=== PATIENT | female | born 1935 | race Caucasian/White ===

== ENCOUNTER 2018-11-03 17:34 | Inpatient (IN) | payer MEDICARE, BC ==
[~2018-11-03] VITALS: Ht 170.2 cm; Wt 58.7 kg
[~2018-11-03 17:34] MED LIST: ACCUPRIL10 MG; ACTONEL5 MG PO; ALENDRONATE70 MG PO; ALLEGRA180 MG PO; ASPIRIN325 MG PO; ATENOLOL25 MG PO; AZITHROMYCIN250 MG PO; BAYER ASPIRIN325 M1 PO; CAL-CITRATE150 MG PO; CALCI PO; CEPHALEXIN500 MG PO; CHOLESTYRAMINE4 G1 PO; CIPROFLOXACN500 MG PO; CLINDAMYCIN150 MG PO; COMPLEX PO; D32000 UNIT OR; EVISTA60 MG PO; FEXOFENADINE180 MG PO; FISH OIL PO; FISH OIL300 MG OR; MECLIZINE25 MG PO; MEDDOSEPAK PO; MELOXICAM7.5 MG PO; NABUMETONE500 MG PO; SANTYL250 MG/GM EX; SYNTHROID75 MCG PO; TYLENOL325 MG PO; VISION PLUS PO; VITAMIN D31000 UNI1 PO; ZITHROMAX500 MG PO; voltaren gel 1% TOP
--- NOTE | 2018-11-03 17:43 | NUR ---
PT AMBULATED TO ROOM WITH STEADY GAIT
[2018-11-03] MEDS ORDERED: AMLODIPINE2.5 MG PO (17:47)
[2018-11-03 17:57] LABS: HEMATOCRIT 39.5 % (37.0-47.0); HEMOGLOBIN 13.3 g/dl (12.0-16.0); IMMATURE GRANULOCYTES 0.2 % (0.0-5.0); MEAN CELL VOLUME 95.6 fL CALC (80.0-100.0); MEAN CORPUSCULAR HGB 32.2 pG CALC (26.0-32.0); MEAN CORPUSCULAR HGB CONC 33.7 g/L CALC (32.0-36.0); NEUT# 2.23 thou/uL (2.00-7.15); RED BLOOD COUNT 4.13 mill/uL (4.20-5.60)
--- NOTE | 2018-11-03 18:27 | NUR ---
PT PROVIDED BENTYL PO PER CONTINUES SPASMS ACROSS ABDOMEN. EARLIER ZOFRAN AND TORADOL HELPED MINIMALLY.
[2018-11-03 18:31] LABS: ALBUMIN 4.4 g/dL (3.2-5.0); ALKALINE PHOSPHATASE 77 u/l (38-126); ANION GAP 16 (6-22 (CALC)); BUN 20 mg/dL (8-23); BUN/CREATININE RATIO 26 (12-20 (CALC)); CARBON DIOXIDE 29 mmol/l (22-30); CHLORIDE 99 mmol/l (95-108); CREATININE 0.8 mg/dL (0.5-1.0); GFR > 60 ML/MIN (>=60 (CALC)); GFR FOR AFR.AMER. > 60 ML/MIN (>=60 (CALC)); LIPASE 193 u/l (23-300); POTASSIUM 4.9 mmol/l (3.5-5.1); SGOT/AST 53 u/l (9-36); SODIUM 140 mmol/l (137-146); TOTAL PROTEIN 7.9 g/dL (6.3-8.2)
[2018-11-03 18:50] LABS: URINE BILIRUBIN - DIPSTICK NEGATIVE (NEGATIVE); URINE BLOOD DIPSTICK NEGATIVE (NEGATIVE); URINE COLOR YELLOW; URINE GLUCOSE - DIPSTICK NEGATIVE (NEGATIVE); URINE KETONE NEGATIVE (NEGATIVE); URINE LEUK ESTERASE NEGATIVE (NEGATIVE); URINE NITRITE - DIPSTICK NEGATIVE (Negative); URINE PROTEIN - DIPSTICK NEGATIVE (NEG-TRACE); URINE SPECIFIC GRAVITY 1.015; URINE UROBILINOGEN - DIPSTICK 0.2 E.U./dL (0.2)
--- NOTE | 2018-11-03 19:00 | NUR ---
PT TO CT AND BACK, AWAITS RESULTS. PT AMBULATORY TO BR WITH STEADY GAIT.
[2018-11-03 21:30] VITALS: BP 167/75
--- NOTE | 2018-11-03 21:30 | NUR ---
PT ARRIVED TO THE FLOOR VIA STRETCHER ACCOMPANIED BY ED NURSE. NG TUBE IN PLACE TO RIGHT NARE/CONNECTED TO LOW INTERMITTANT SUCTION. PT POSITIONED IN BED, V/S OBTAINED AND PT ORIENTED TO ROOM,CALL SYSTEM,LIGHTS,BED AND TV. PT DENIES ANY PAIN/N/V AT THIS TIME.
--- NOTE | 2018-11-03 21:38 | NUR ---
PT MADE AWARE OF PENDING ADMISSION PER POSSIBLE BOWEL OBSTRUCTION. REPORT WAS CALLED TO SANDRA NAVARRO, PT TAKEN TO FLOOR WITHOUT INCIDENT. NG WAS PLACED BY CHARGE NURSE MORE, DRAINS TANNISH LIQUID, 200 OUT WHEN TRANSPORTED UPSTAIRS. BILATERAL NOSE BLEEDS WERE INFLICTED WITH ATTEMPTS, NOSE CLAMPS PLACED.
[2018-11-04] VITALS (8 sets, daily range): BP systolic 117–167; BP diastolic 61–87
--- NOTE | 2018-11-04 00:02 | NUR ---
PT ASSESSED, LUNG SOUNDS ARE CLEAR, HYPO BOWEL SOUNDS W/TENDERNESS TO UPPER RIGHT SIDE ONLY. PT LOCX4, DENIES PAIN/N/V AT THIS TIME. SKIN IS INTACT W/BRUISING AND REDNESS TO LOWER EXT BILAT W/OLD SKIN TEARS SCABBED OVER. PULSES ARE STRONG, NEURO'S INTACT. POC DISCUSSED AT THIS TIME AND PT MEDICATED ORDERS PROVIDE. NGTUBE IS PATENT W/YELLOW OUTPUT W/LOW INTERMITTANT SUCTION. IV FLUIDS ADMINISTERED ORDERS PROVIDE/SITE APPEARS HEALTHY. PT PROVIDED LIP BALM AND MOUTH SWABS FOR COMFORT. PT IS NPO AND THIS HAS BEEN EXPLAINED TO PT.
--- NOTE | 2018-11-04 02:55 | NUR ---
PT AWOKE TO MY ENTERING ROOM, STATES SHE HAS BEEN IN AND OUT OF SLEEP. NG TUBE IS DRAINING W/LOW INTERMITTENT SUCTION, YELLOW/BROWN OUTPUT. 1000CC OF CLOUDY YELLOW URINE EMPTIED FROM BEDSIDE COMMODE. PT ASSISTED IN REPOSITIONING IN BED FOR COMFORT. PT DENIES ANY OTHER NEEDS, BUT WAS ENCOURAGED TO CALL, CALL LIGHT AT SIDE.
[2018-11-04 05:58] LABS: HEMATOCRIT 38.3 % (37.0-47.0); HEMOGLOBIN 12.7 g/dl (12.0-16.0); IMMATURE GRANULOCYTES 0.2 % (0.0-5.0); MEAN CELL VOLUME 94.8 fL CALC (80.0-100.0); MEAN CORPUSCULAR HGB 31.4 pG CALC (26.0-32.0); MEAN CORPUSCULAR HGB CONC 33.2 g/L CALC (32.0-36.0); NEUT# 4.12 thou/uL (2.00-7.15); RED BLOOD COUNT 4.04 mill/uL (4.20-5.60); RED CELL DISTRI WIDTH 13.2 % (11.5-15.5)
[2018-11-04 06:09] LABS: ALBUMIN 3.6 g/dL (3.2-5.0); ALKALINE PHOSPHATASE 72 u/l (38-126); AMYLASE 93 u/l (30-110); BILIRUBIN, TOTAL 0.4 mg/dL (0.0-1.4); BUN 15 mg/dL (8-23); BUN/CREATININE RATIO 20 (12-20 (CALC)); CARBON DIOXIDE 31 mmol/l (22-30); CHLORIDE 100 mmol/l (95-108); CREATININE 0.7 mg/dL (0.5-1.0); GFR > 60 ML/MIN (>=60 (CALC)); GFR FOR AFR.AMER. > 60 ML/MIN (>=60 (CALC)); LIPASE 181 u/l (23-300); MAGNESIUM 1.9 mg/dL (1.6-2.3); SGOT/AST 31 u/l (9-36); SODIUM 140 mmol/l (137-146); TOTAL PROTEIN 6.5 g/dL (6.3-8.2)
[2018-11-04 06:22] LABS: ANION GAP 13 (6-22 (CALC)); POTASSIUM 3.8 mmol/l (3.5-5.1)
--- NOTE | 2018-11-04 07:00 | NUR ---
Received report from nurse Michael, pt resting in bed, ngt on rt nare, connected to suction machine, with coffee ground drainage, with even unlabored braething call light at reach
--- NOTE | 2018-11-04 08:23 | NUR ---
Received a phone order from Dr. Flores Small bowel series with gastrograftin oral. Orders put in place. Procedure explained to patient. Also pt c/o headache 03/31 report to Marie MARINELLI ordered toradol 15mg iv now. Awaiting for pharmacy verification.
--- NOTE | 2018-11-04 11:53 | NUR ---
Pt brought up with the clinical support team, Nurse Vamsi stated that during the 1 hour photo of the bowel series pt started to experienced nausea and vomitted yellowish brown fluid, dizziness, and fainted at the xray room. Pt back to room, pt stiil vomitting yellow brownish fluid, ngt was checked for patency and placement. Seen by Dr. Aguayo and ISIS Salazar, ordered Zofran, and CXR.
--- NOTE | 2018-11-04 12:31 | NUR ---
Order to place ramírez, inserted ramírez catheter at 1215 fr 16, attached to urine bag. Zofran iv given, New set of V/S taken as follows: Bp 140/67 T 97.8 P50 POX 93% at RA, R 20.
--- NOTE | 2018-11-04 12:52 | NUR ---
at 1240 CXR and abdominal xray of the bowel series taken Dr. Aguayo made aware, awaiting for further orders
--- NOTE | 2018-11-04 15:16 | NUR ---
DR. SALDAÑA AT BEDSIDE TO ASSESS PT AND POC WITH PT. PT VERBALIZED UNDERSTANDING. CALL LIGHT IN REACH.
--- NOTE | 2018-11-04 16:51 | NUR ---
ABDOMEN KUB IV done, pending result, patient curently resting in bed, sleeping, no discomforts noted at this time
--- NOTE | 2018-11-04 19:00 | NUR ---
RECEIVED REPORT FROM DAY NURSE. PT ASLEEP AT THIS TIME. NGT TUBE DRAINING ON CONTINUOUS SUCTION. WIGGINS DRAINING TO GRAVITY CLEAR YELLOW URINE. NO NEEDS AT THIS TIME. CALL REY IN REACH. WILL CONTINUE TO MONITOR.
--- NOTE | 2018-11-04 20:00 | NUR ---
DR LOCKETT NOTIFIED OF TEMP OF 101.2. NEW ORDERS RECEIVED.
--- NOTE | 2018-11-04 21:00 | NUR ---
PT RESTING QUIETLY IN BED. NGT DRAINING YELLOW. WIGGINS CATH IN PLACE DRAINING CLEAR YELLOW URINE. MEDICATED PER ORDER FOR TEMP. ASESSMENT COMPLETED AT THIS TIME. LUNG SOUNDS CLEAR, HEART SOUNDS NORMAL, BOWEL SOUND ACTIVE. BRUSING TO SHINS, NO SWELLING OR EDEMA NOTED. NO NEEDS AT THIS TIME. CALL REY IN REACH. WILL CONTINUE TO MONITOR.
--- NOTE | 2018-11-05 | NUR ---
PT RESTING QUIETLY IN BED. NO S/S OF DISTRESS NOTED. NGT DRAINING ON LOW SUCTION. WIGGINS DRAINING TO GRAVITY. NO NEEDS AT THIS TIME.
[2018-11-05 04:33] VITALS: BP 126/69
[2018-11-05 04:34] VITALS: BP 146/86
[2018-11-05 05:17] LABS: HEMATOCRIT 40.7 % (37.0-47.0); HEMOGLOBIN 13.6 g/dl (12.0-16.0); IMMATURE GRANULOCYTES 0.2 % (0.0-5.0); MEAN CELL VOLUME 95.5 fL CALC (80.0-100.0); MEAN CORPUSCULAR HGB 31.9 pG CALC (26.0-32.0); MEAN CORPUSCULAR HGB CONC 33.4 g/L CALC (32.0-36.0); PLATELET COUNT 222 thou/uL (130-400); RED BLOOD COUNT 4.26 mill/uL (4.20-5.60); RED CELL DISTRI WIDTH 13.4 % (11.5-15.5)
[2018-11-05 05:29] LABS: ALBUMIN 3.5 g/dL (3.2-5.0); ALKALINE PHOSPHATASE 66 u/l (38-126); AMYLASE 74 u/l (30-110); ANION GAP 12 (6-22 (CALC)); BILIRUBIN, TOTAL 0.5 mg/dL (0.0-1.4); BUN 23 mg/dL (8-23); BUN/CREATININE RATIO 27 (12-20 (CALC)); CARBON DIOXIDE 33 mmol/l (22-30); CHLORIDE 101 mmol/l (95-108); CREATININE 0.9 mg/dL (0.5-1.0); GFR 60 ML/MIN (>=60 (CALC)); GFR FOR AFR.AMER. > 60 ML/MIN (>=60 (CALC)); LIPASE 105 u/l (23-300); MAGNESIUM 1.8 mg/dL (1.6-2.3); POTASSIUM 3.6 mmol/l (3.5-5.1); SGOT/AST 29 u/l (9-36); SODIUM 142 mmol/l (137-146); TOTAL PROTEIN 6.3 g/dL (6.3-8.2)
[2018-11-05 06:05] LABS: BAND 30 % (0-8); MANUAL DIFFERENTIAL YES; PLATELET ESTIMATE NORMAL
--- NOTE | 2018-11-05 06:30 | NUR ---
PT ASLEEP AT THIS TIME. LABOR RELATIONS REPRESENTATIVE NOTICED PT HAD A LARGE BM DOWN TO FEET. PT WAKES TO VERBAL STIMUILI PT IS A & O x3 BUT UNAWARE OF BM. INSURANCE SALES EXECUTIVE CATESHIA IN TO CLEAN PT.
--- NOTE | 2018-11-05 07:00 | NUR ---
rECEIVED REPORT FROM NURSE LOYOLA, PATIENT RESTING IN BED, NGT ON RT NARE, DENIES DIZZINESS AND NAUSEA, WILL CONTINUE TO MONITOR. CALL LIGHT AT REACH
[2018-11-05 07:30] VITALS: BP 124/69
--- NOTE | 2018-11-05 08:00 | NUR ---
Patient remains on NPO denies pain or discomfort, ngt checked for patency and placement draining greenish to brownish fluids, suction maintened on intermittent low, has ramírez catheter draining laura colored urine. call light at reach will continue to monitor.
--- NOTE | 2018-11-05 09:10 | NUR ---
portable kub abdomen done awiting result.
--- NOTE | 2018-11-05 11:50 | NUR ---
Seen on rounds by Dr. Aguayo, reviewed the plan of care to patient, currently resting in bed, denies pain call light at reach
[2018-11-05 11:53] VITALS: BP 144/62
[2018-11-05 15:44] VITALS: BP 144/68
--- NOTE | 2018-11-05 16:34 | NUR ---
Patient has a slight elevated temp of 100F, remains on NPO, NGT checked for placement and patency, prn acetaminophen suppository given with effect repeat temp 99.2 F. Call light within reach
--- NOTE | 2018-11-05 17:09 | NUR ---
Patient seen on rounds by Dr. Flores with orders made to d/c ramírez catheter, clamp ngt tubing and start on clear liquids
--- NOTE | 2018-11-05 17:42 | NUR ---
Britt catheter discontinued, ngt clamped, patient given ice chips, tolerated at this time, will continue to monitor call light at reach
--- NOTE | 2018-11-05 19:00 | NUR ---
PT RESTING IN BED WITH EYES CLOSED. NO S/S OF DISTRESS. NGT IN RIGHT ZAPIEN, CLAMPED AT THIS TIME.CALL REY IN REACH. WILL CONTINUE TO MONITOR.
[2018-11-05 19:34] VITALS: BP 136/59
--- NOTE | 2018-11-05 21:42 | NUR ---
PT RESTING IN BED APPEARS ASLEEP AT THIS TIME. ASSESMENT COMPLETED AT THIS TIME. LUNGS CLEAR, HR NORMAL, BOWEL SOUNDS ACTIVE. NO SWELLING OR EDEMA. BRUSING TO BOH SHINS NOTED. NGT IN RIGHT ZAPIEN, CLAMPED AT THIS TIME. PT HAVING NO NAUSEA OR VOMITING. CALL REY IN REACH. WILL CONTINUEW TO MONITOR.
--- NOTE | 2018-11-06 | NUR ---
PT RESTING QUIETLY IN BED. NO S/S OF DISTRESS AT THIS TIME. CALL REY IN REACH. WILL CONTINUE TO MONITOR.
--- NOTE | 2018-11-06 04:00 | NUR ---
PT RESTING QUIETLY IN BED. NGT CLAMPED. PT SLEEPING WELL. CALL REY IN REACH. WILL CONTINUE TO MONITOR.
[2018-11-06 04:29] VITALS: BP 157/73
--- NOTE | 2018-11-06 07:00 | NUR ---
RECEIVED REPORT FROM NURSE LOYOLA, PATIENT IN BED, DENIES PAIN OR NAUSEA, EVEN UNLABORED BREATHING CALL LIGHT AT REACH
[2018-11-06 07:30] VITALS: BP 151/82
--- NOTE | 2018-11-06 08:00 | NUR ---
PATIENT IN RESTING IN BED, NGT IN RT NARE CLAMPED, CHECKED FOR PLACEMENT AND PATENCY. DENIES PAIN AT THIS TIME, CALL LIGHT AT REACH
--- NOTE | 2018-11-06 09:35 | NUR ---
SEEN ON ROUNDS BY DR. LOCKETT, DISCUSSED THE PLAN OF CARE, ORDERED TO REMOVE NGT, ADVANCE DIET TOLERATED. PATIENTS DENIES NEEDS AT THIS TIME CALL LIGHT AT REACH
--- NOTE | 2018-11-06 09:40 | NUR ---
PATIENT SITTING UPRIGHT, REMOVED NGT, TOLERATED. CURRENTLY SITTING ON RECLINER CALL LIGHT AT REACH
--- NOTE | 2018-11-06 12:00 | NUR ---
PATIENT SITTING IN THE RECLINER, STATED RELIEF FROM HEADACHE, CURRENLTY EATING LUNCH ON FULL LIQUID DIET AT THIS TIME TOLERATED,CALL LIGHT AT REACH
[2018-11-06 15:57] VITALS: BP 129/56
--- NOTE | 2018-11-06 16:00 | NUR ---
Pt alert and orieted able to make needs known, sitting on recliner, denies pain or discomforts at this time, currently reading a book call light at reach
[2018-11-06 19:40] VITALS: BP 166/83
--- NOTE | 2018-11-06 19:40 | NUR ---
BEDSIDE REPORT RECEIVED FROM RAMON JACKSON. PT RESTING IN BED SEMI FOWLERS; ALERT AND OREINTED. C/O 8/ HEADACHE; TYLENOL ADMINISTERED AT THIS TIME. RESPIRATIONS EVEN AND UNLABROED ON ROOM AIR. PLAN OF CARE REVIEWED. PT ENCOURAGED TO VERBALIZE CONCERNS. STATES UNDERSTANDING. SAFETY MEASURES IN PLACE. CALL LIGHT WITHIN REACH.
--- NOTE | 2018-11-07 00:06 | NUR ---
PT ASLEEP AT THIS TIME WITH NO SIGNS OF DISTRESS. REPORTED EARLIER THAT TYLENOL WAS EFFECTIVE FOR HEADAHCE. RESPIRATIONS EVEN AND UNLABORED ON ROOM AIR. IV FLUIDS INFUSING WITHOUT DIFFICULTY; IV SITE APPEARS HEALTHY. INDEPENDENT IN ROOM. SAFETY MEASURES IN PLACE. CALL LIGHT WITHIN REACH.
[2018-11-07 03:55] VITALS: BP 169/87
--- NOTE | 2018-11-07 04:22 | NUR ---
PT ASLEEP AT THIS TIME WITH NO SIGNS OF DISTRESS. RESPIRATIONS EVEN AND UNLABORED ON ROOM AIR. NO ACUTE CHANGES IN CONDITION THROUGHOUT THE NIGHT.
[2018-11-07 05:53] LABS: HEMATOCRIT 35.2 % (37.0-47.0); HEMOGLOBIN 11.7 g/dl (12.0-16.0); IMMATURE GRANULOCYTES 0.7 % (0.0-5.0); MEAN CELL VOLUME 97.5 fL CALC (80.0-100.0); MEAN CORPUSCULAR HGB 32.4 pG CALC (26.0-32.0); MEAN CORPUSCULAR HGB CONC 33.2 g/L CALC (32.0-36.0); NEUT# 6.61 thou/uL (2.00-7.15); RED BLOOD COUNT 3.61 mill/uL (4.20-5.60); RED CELL DISTRI WIDTH 13.3 % (11.5-15.5)
[2018-11-07 06:30] LABS: ALBUMIN 2.8 g/dL (3.2-5.0); ALKALINE PHOSPHATASE 70 u/l (38-126); AMYLASE 56 u/l (30-110); BILIRUBIN, TOTAL 0.5 mg/dL (0.0-1.4); BUN 14 mg/dL (8-23); BUN/CREATININE RATIO 25 (12-20 (CALC)); CARBON DIOXIDE 25 mmol/l (22-30); CHLORIDE 109 mmol/l (95-108); CREATININE 0.6 mg/dL (0.5-1.0); GFR > 60 ML/MIN (>=60 (CALC)); GFR FOR AFR.AMER. > 60 ML/MIN (>=60 (CALC)); LIPASE 74 u/l (23-300); MAGNESIUM 1.8 mg/dL (1.6-2.3); SGOT/AST 27 u/l (9-36); SODIUM 138 mmol/l (137-146); TOTAL PROTEIN 5.4 g/dL (6.3-8.2)
[2018-11-07 06:32] LABS: ANION GAP 9 (6-22 (CALC)); POTASSIUM 4.5 mmol/l (3.5-5.1)
--- NOTE | 2018-11-07 07:20 | NUR ---
PT REPORT RECIEVED FROM RAMON HARGROVE. PT SITTING IN RECLINER. NO NEEDS AT THIS TIME. CALL LIGHT IN REACH. WILL CONTINUE TO MONITOR.
[2018-11-07 08:37] VITALS: BP 142/70
--- NOTE | 2018-11-07 08:37 | NUR ---
PT A/O X3. SPEECH IS CLEAR. RESP EVEN AND UNLABORED. LUNG SOUNDS CLEAR. PT HAS A DRY COUGH. BOWEL SOUNDS ACTIVE X4. STRONG RADIAL PULSES. #20 LW D5 NS W/ 40 K @75. SITE HEALTHY. RT PEDAL PULSE STRONG. WEAK LT PEDAL PULSE; TRACE OF EDEMA NOTED TO RT FOOT. ENCOURAGED ELEAVTION WHEN OOB. PT DENIES ANY PAIN OR NEEDS. POC DISCUSSED. SAFETY PRECAUTIONS IN PLACE. CALL LIGHT IN REACH. WILL CONTINUE TO MONITOR.
--- NOTE | 2018-11-07 12:09 | NUR ---
PT SITTING IN RECLINER EATING LUNCH. NO C/O PAIN OR NEEDS. CALL LIGHT IN REACH. WILL CONTINUE TO MONITOR.
[2018-11-07 15:50] VITALS: BP 139/64
--- NOTE | 2018-11-07 16:00 | NUR ---
PT WATCHING TELEVISION. NO C/O PAIN OR NEEDS. CALL LIGHT IN REACH. WILL CONTINUE TO MONITOR.
[2018-11-07 19:20] VITALS: BP 150/76
--- NOTE | 2018-11-07 19:47 | NUR ---
PT ASSESSED, LUNG SOUNDS ARE CLEAR THROUGHOUT W/CRACKLES IN RIGHT LOWER LOBE, ABD SOFT NON-TENDER W/ACTIVE BOWEL SOUNDS, PT LOCX4, NO S/O DITRESS, SKIN BRUISED,BUT INTACT. NEURO'S INTACT. PT SELF AMBULATES TO RESTROOM AND BACK/DENIES ANY SOB UPON AMBULATION.
--- NOTE | 2018-11-07 22:26 | NUR ---
PT ANTIBIOTIC THERAPY COMPLETED AT THIS TIME. PT ASSISTED TO RESTROOM AND BACK TO BED. NO S/O DISTRESS NOTED. CALL LIGHT AT BEDSIDE.
--- NOTE | 2018-11-08 05:50 | NUR ---
PT MEDICATED W/IV ANTIBIOTIC THERAPY AT THIS TIME. NO S/O DISTRESS NOTED, DENIES ANY OTHER NEEDS.
[2018-11-08 05:58] LABS: HEMATOCRIT 32.9 % (37.0-47.0); HEMOGLOBIN 11.2 g/dl (12.0-16.0); IMMATURE GRANULOCYTES 0.6 % (0.0-5.0); MEAN CELL VOLUME 95.1 fL CALC (80.0-100.0); MEAN CORPUSCULAR HGB 32.4 pG CALC (26.0-32.0); NEUT# 4.59 thou/uL (2.00-7.15); RED BLOOD COUNT 3.46 mill/uL (4.20-5.60); RED CELL DISTRI WIDTH 12.9 % (11.5-15.5)
[2018-11-08 06:05] LABS: ALBUMIN 2.8 g/dL (3.2-5.0); ALKALINE PHOSPHATASE 72 u/l (38-126); ANION GAP 11 (6-22 (CALC)); BILIRUBIN, TOTAL 0.6 mg/dL (0.0-1.4); BUN 11 mg/dL (8-23); BUN/CREATININE RATIO 21 (12-20 (CALC)); CARBON DIOXIDE 23 mmol/l (22-30); CHLORIDE 104 mmol/l (95-108); CREATININE 0.5 mg/dL (0.5-1.0); GFR > 60 ML/MIN (>=60 (CALC)); GFR FOR AFR.AMER. > 60 ML/MIN (>=60 (CALC)); MAGNESIUM 1.7 mg/dL (1.6-2.3); POTASSIUM 4.2 mmol/l (3.5-5.1); SGOT/AST 32 u/l (9-36); SODIUM 134 mmol/l (137-146); TOTAL PROTEIN 5.3 g/dL (6.3-8.2)
[2018-11-08 08:22] VITALS: BP 96/58
--- NOTE | 2018-11-08 08:27 | NUR ---
PT SITTING UP IN RECLINER WATCHING TV AND EATING BREAKFAST; A/O X4; SPEECH'S CLEAR; RESP EVEN AND UNLABORED; CRACKLES NOTED TO RLL; PULSES STRONG; #20 LW S/L; NO REDNESS OR EDEMA NOTED; HYPOACTIVE BS ALL QUADRANTS; LAST BM 11/08; TRACE EDEMA NOTED TO BLE; REPORT NO PAIN; PT HAS NO QUESTIONS OR CONCERNS; SAFETY PRECAUTION REINFORCE; CALL REY IN REACH.
[2018-11-08 15:35] VITALS: BP 151/77
--- NOTE | 2018-11-08 16:26 | NUR ---
PT LAYING IN BED AWAKE; DENIES ANY NEEDS; NEW IV SITE STARTED AT NOON #20 LA; REMAINS FREE OF EDEMA; RESP EVEN AND UNLABRORED; CALL REY IN REACH; WILL CONTINUE TO MONITOR.
--- NOTE | 2018-11-08 19:22 | NUR ---
PT IS IN RECLINER W/LIGHTS LOW AND TV ON. SHE DENIED ANY NEEDS AT THIS TIME. IV SITE APPEARS HEALTHY, POC DISCUSSED, BEDSIDE REPORT RECEIVED FROM DAY NURSE. CALL LIGHT IN PT HAND.
[2018-11-08 19:25] VITALS: BP 111/59
--- NOTE | 2018-11-08 21:48 | NUR ---
PT MEDICATED W/ANTIBIOTIC THERAPY AND ASSESSED, LUNG SOUNDS CLEAR THROUGOUT W/CRACKLES TO LOWER RIGHT LOBE, ABD SOFT NON-TENDER, TRACE EDEMA TO LLE, SKIN INTACT W/BRUISING AND DISCOLORATION TO LE BILAT, PT LOCX4, PT DENIES PAIN/N/V AT THIS TIME. PT OFFERED SNACK/DRINK/DENIED.
--- NOTE | 2018-11-09 04:45 | NUR ---
PT UP COMING FROM RESTROOM BACK TO THE BED. NO S/O DISTRESS NOTED. CALL LIGHT AT BEDSIDE, V/S BEING ASSESSED AT THIS TIME. PT DENIES ANY NEEDS
[2018-11-09 04:50] VITALS: BP 142/74
--- NOTE | 2018-11-09 05:43 | NUR ---
PT MEDICATED ORDERS PROVIDE. PT AWAKE AND TALKATIVE, REPORTS "FEELING FINE."
[2018-11-09 07:03] LABS: HEMATOCRIT 34.1 % (37.0-47.0); HEMOGLOBIN 11.4 g/dl (12.0-16.0); IMMATURE GRANULOCYTES 0.7 % (0.0-5.0); MEAN CORPUSCULAR HGB 31.8 pG CALC (26.0-32.0); MEAN CORPUSCULAR HGB CONC 33.4 g/L CALC (32.0-36.0); NEUT# 6.72 thou/uL (2.00-7.15); RED BLOOD COUNT 3.59 mill/uL (4.20-5.60); RED CELL DISTRI WIDTH 12.7 % (11.5-15.5)
--- NOTE | 2018-11-09 07:15 | NUR ---
PT REPORT RECIEVED FROM RAMON FLORES. PT RESTING IN BED. NO S/S OF DISTESS. CALL LIGHT IN REACH. WILL CONTINUE TO MONITOR.
[2018-11-09 07:20] LABS: ALBUMIN 2.8 g/dL (3.2-5.0); ALKALINE PHOSPHATASE 74 u/l (38-126); ANION GAP 11 (6-22 (CALC)); BILIRUBIN, TOTAL 0.6 mg/dL (0.0-1.4); BUN 11 mg/dL (8-23); BUN/CREATININE RATIO 19 (12-20 (CALC)); CARBON DIOXIDE 26 mmol/l (22-30); CHLORIDE 102 mmol/l (95-108); CREATININE 0.6 mg/dL (0.5-1.0); GFR > 60 ML/MIN (>=60 (CALC)); GFR FOR AFR.AMER. > 60 ML/MIN (>=60 (CALC)); MAGNESIUM 1.8 mg/dL (1.6-2.3); POTASSIUM 3.9 mmol/l (3.5-5.1); SGOT/AST 26 u/l (9-36); SODIUM 135 mmol/l (137-146); TOTAL PROTEIN 5.3 g/dL (6.3-8.2)
[2018-11-09 08:19] VITALS: BP 109/59
--- NOTE | 2018-11-09 08:19 | NUR ---
PT A/O X3. SPEECH IS CLEAR. RESP EVEN AND UNLABORED. ALL LUNG GARY CLEAR EXCEPT RLL CRACKLES. BOWEL SOUNDS ACTIVE X4. STRONG RADIAL AND PEDAL PULSES. #20 LFA SL. FLUSHED AND PATENT. SITE HEALTHY. SKIN INTACT. PT DOES HAVE SOME DISCOLORATION TO BLE. NO C/O PAIN OR NEEDS. POC DISCUSSED. SAFETY PRECAUTIONS IN PLACE. CALL LIGHT IN REACH. WILL CONTINUE TO MONITOR.
--- NOTE | 2018-11-09 11:09 | NUR ---
PT SITTING IN RECLINER. NO C/O PAIN OR NEEDS. CALL LIGHT IN REACH. WILL CONTINUE TO MONITOR.
[2018-11-09] MEDS ORDERED: LEVAQUIN750 MG PO (12:28)
[2018-11-09 15:42] VITALS: BP 122/70
--- NOTE | 2018-11-09 15:48 | NUR ---
D/C INSTRUCTIONS DISCUSSED W/ PT. PT STATES UNDERSTANDING. IV REMOVED, CATHETER INTACT. PT GETTING DRESSED, WAITING FOR HER BROTHER TO PICK HER UP.
--- NOTE | 2018-11-09 16:05 | NUR ---
Discharge instructions given. Patient verbalizes understanding of same. Discharged in stable condition via Wheelchair to Home with family. All belongings sent with pt.
== END 2018-11-09 16:05 | disposition home or self-care (01) | DRG 388 ==
LOC: ED 17:34 → ED-I 19:45 → ED 20:43 → MS2 20:44
PROVIDERS: Family Medicine; ADMIT Internal Medicine Nephrology; ATTEND Internal Medicine Nephrology
PROC: 0T9B70Z Drainage of Bladder with Drainage Device, Via Natural or Artificial Opening (ICD-10-PCS; principal; 2018-11-04)
DX: K56.609 Unspecified intestinal obstruction, unspecified as to partial versus complete obstruction (principal); J69.0 Pneumonitis due to inhalation of food and vomit; I10 Essential (primary) hypertension; E03.9 Hypothyroidism, unspecified; F41.9 Anxiety disorder, unspecified; E55.9 Vitamin D deficiency, unspecified; R63.6 Underweight; Z68.20 Body mass index [BMI] 20.0-20.9, adult
CPT/HCPCS: G0378; Q9967

== ENCOUNTER 2019-09-17 11:46 | Inpatient (IN) | payer MEDICARE, BC ==
[~2019-09-17] VITALS: Ht 170.2 cm; Wt 54.4 kg
[~2019-09-17 11:46] MED LIST changes: +AMLODIPINE2.5 MG PO; +LEVAQUIN750 MG PO
[2019-09-17] MEDS ORDERED: B121000 MCG (12:59)
[2019-09-17 13:11] LABS: HEMATOCRIT 35.2 % (37.0-47.0); HEMOGLOBIN 11.2 g/dl (12.0-16.0); IMMATURE GRANULOCYTES 0.3 % (0.0-5.0); MEAN CELL VOLUME 93.9 fL CALC (80.0-100.0); MEAN CORPUSCULAR HGB 29.9 pG CALC (26.0-32.0); MEAN CORPUSCULAR HGB CONC 31.8 g/L CALC (32.0-36.0); NEUT# 4.04 thou/uL (2.00-7.15); RED BLOOD COUNT 3.75 mill/uL (4.20-5.60); RED CELL DISTRI WIDTH 14.8 % (11.5-15.5)
[2019-09-17 13:15] LABS: ALBUMIN 3.4 g/dL (3.2-5.0); ALKALINE PHOSPHATASE 80 u/l (38-126); ANION GAP 11 (6-22 (CALC)); BILIRUBIN, TOTAL 0.4 mg/dL (0.0-1.4); BUN 16 mg/dL (8-23); BUN/CREATININE RATIO 26 (12-20 (CALC)); CARBON DIOXIDE 26 mmol/l (22-30); CHLORIDE 103 mmol/l (95-108); CREATININE 0.6 mg/dL (0.5-1.0); GFR > 60 ML/MIN (>=60 (CALC)); GFR FOR AFR.AMER. > 60 ML/MIN (>=60 (CALC)); POTASSIUM 4.3 mmol/l (3.5-5.1); SGOT/AST 35 u/l (9-36); SODIUM 135 mmol/l (137-146); TOTAL PROTEIN 6.2 g/dL (6.3-8.2)
[2019-09-17 16:30] VITALS: BP 155/73
[2019-09-17 19:35] VITALS: BP 131/72
[2019-09-18 04:41] VITALS: BP 129/69
[2019-09-18 05:01] LABS: HEMATOCRIT 32.9 % (37.0-47.0); HEMOGLOBIN 10.7 g/dl (12.0-16.0); IMMATURE GRANULOCYTES 0.2 % (0.0-5.0); MEAN CELL VOLUME 92.7 fL CALC (80.0-100.0); MEAN CORPUSCULAR HGB 30.1 pG CALC (26.0-32.0); MEAN CORPUSCULAR HGB CONC 32.5 g/L CALC (32.0-36.0); NEUT# 3.37 thou/uL (2.00-7.15); RED BLOOD COUNT 3.55 mill/uL (4.20-5.60); RED CELL DISTRI WIDTH 14.6 % (11.5-15.5)
[2019-09-18 05:16] LABS: ANION GAP 8 (6-22 (CALC)); BUN 12 mg/dL (8-23); BUN/CREATININE RATIO 23 (12-20 (CALC)); CARBON DIOXIDE 27 mmol/l (22-30); CHLORIDE 104 mmol/l (95-108); CREATININE 0.5 mg/dL (0.5-1.0); GFR > 60 ML/MIN (>=60 (CALC)); GFR FOR AFR.AMER. > 60 ML/MIN (>=60 (CALC)); MAGNESIUM 1.9 mg/dL (1.6-2.3); POTASSIUM 4.2 mmol/l (3.5-5.1); SODIUM 136 mmol/l (137-146)
[2019-09-18 08:15] VITALS: BP 116/76
[2019-09-18 15:00] VITALS: BP 122/60
[2019-09-18 18:33] VITALS: BP 113/70
[2019-09-19 04:30] VITALS: BP 128/72
[2019-09-19 06:04] LABS: HEMATOCRIT 37.8 % (37.0-47.0); HEMOGLOBIN 12.4 g/dl (12.0-16.0); IMMATURE GRANULOCYTES 0.7 % (0.0-5.0); MEAN CELL VOLUME 90.9 fL CALC (80.0-100.0); MEAN CORPUSCULAR HGB 29.8 pG CALC (26.0-32.0); MEAN CORPUSCULAR HGB CONC 32.8 g/L CALC (32.0-36.0); NEUT# 7.46 thou/uL (2.00-7.15); RED BLOOD COUNT 4.16 mill/uL (4.20-5.60); RED CELL DISTRI WIDTH 14.9 % (11.5-15.5)
[2019-09-19 06:13] LABS: ANION GAP 13 (6-22 (CALC)); BUN 15 mg/dL (8-23); BUN/CREATININE RATIO 25 (12-20 (CALC)); CARBON DIOXIDE 24 mmol/l (22-30); CHLORIDE 103 mmol/l (95-108); CREATININE 0.6 mg/dL (0.5-1.0); GFR > 60 ML/MIN (>=60 (CALC)); GFR FOR AFR.AMER. > 60 ML/MIN (>=60 (CALC)); POTASSIUM 4.1 mmol/l (3.5-5.1); SODIUM 135 mmol/l (137-146)
[2019-09-19 07:30] VITALS: BP 126/62
[2019-09-19 15:46] VITALS: BP 152/70
[2019-09-19 18:50] VITALS: BP 114/62
[2019-09-20 03:28] VITALS: BP 129/65
[2019-09-20 08:13] VITALS: BP 124/73
[2019-09-20] MEDS ORDERED: PANTOPRAZOLE SO40 M1 PO (13:09)
[2019-09-20] MEDS ORDERED: TRAMADOL HCL50 MG PO (13:10)
[2019-09-20] MEDS ORDERED: DOXY-CAPS100 MG PO (13:10)
[2019-09-20 15:25] VITALS: BP 147/66
== END 2019-09-20 18:00 | disposition home or self-care (01) | DRG 603 ==
LOC: ED 11:46 → ED-I 13:02 → ED 13:31 → MS2 13:32 → ED-I 13:32 → MS2 15:52
PROVIDERS: Nurse Practitioner Family; ADMIT Internal Medicine; ATTEND Internal Medicine
DX: L03.116 Cellulitis of left lower limb (principal); E46 Unspecified protein-calorie malnutrition; Z68.1 Body mass index [BMI] 19.9 or less, adult; I10 Essential (primary) hypertension; E03.9 Hypothyroidism, unspecified; D64.9 Anemia, unspecified; F41.9 Anxiety disorder, unspecified; I99.9 Unspecified disorder of circulatory system; Z87.891 Personal history of nicotine dependence
CPT/HCPCS: G0378; J1650

== ENCOUNTER 2019-10-29 | Emergency (ER) | payer MEDICARE, BC ==
[~2019-10-29] MED LIST changes: +B121000 MCG; +DOXY-CAPS100 MG PO; +PANTOPRAZOLE SO40 M1 PO; +TRAMADOL HCL50 MG PO
[2019-10-29 08:45] LABS: HEMATOCRIT 37.1 % (37.0-47.0); HEMOGLOBIN 11.3 g/dl (12.0-16.0); IMMATURE GRANULOCYTES 0.2 % (0.0-5.0); MEAN CORPUSCULAR HGB 30.1 pG CALC (26.0-32.0); MEAN CORPUSCULAR HGB CONC 30.5 g/L CALC (32.0-36.0); NEUT# 4.69 thou/uL (2.00-7.15); RED BLOOD COUNT 3.76 mill/uL (4.20-5.60); RED CELL DISTRI WIDTH 14.9 % (11.5-15.5)
[2019-10-29 08:49] LABS: MEAN CELL VOLUME 98.7 fL CALC (80.0-100.0)
[2019-10-29 09:14] LABS: ALBUMIN 3.5 g/dL (3.2-5.0); ALKALINE PHOSPHATASE 66 u/l (38-126); AMYLASE 147 u/l (30-110); ANION GAP 12 (6-22 (CALC)); BILIRUBIN, TOTAL 0.4 mg/dL (0.0-1.4); BUN 15 mg/dL (8-23); BUN/CREATININE RATIO 27 (12-20 (CALC)); CARBON DIOXIDE 21 mmol/l (22-30); CHLORIDE 103 mmol/l (95-108); CREATININE 0.6 mg/dL (0.5-1.0); GFR > 60 ML/MIN (>=60 (CALC)); GFR FOR AFR.AMER. > 60 ML/MIN (>=60 (CALC)); LIPASE 253 u/l (23-300); POTASSIUM 3.9 mmol/l (3.5-5.1); SGOT/AST 33 u/l (9-36); SODIUM 133 mmol/l (137-146); TOTAL PROTEIN 6.3 g/dL (6.3-8.2)
[2019-10-29 10:17] LABS: URINE BILIRUBIN - DIPSTICK NEGATIVE (NEGATIVE); URINE BLOOD DIPSTICK TRACE-INTACT (NEGATIVE); URINE COLOR YELLOW; URINE GLUCOSE - DIPSTICK NEGATIVE (NEGATIVE); URINE KETONE 15 mg/dL (NEGATIVE); URINE LEUK ESTERASE NEGATIVE (NEGATIVE); URINE NITRITE - DIPSTICK NEGATIVE (Negative); URINE PROTEIN - DIPSTICK NEGATIVE (NEG-TRACE); URINE UROBILINOGEN - DIPSTICK 0.2 E.U./dL (0.2)
[2019-10-29] MEDS ORDERED: PHENERGAN25 MG/TAB PO (10:35)
[2019-10-29] MEDS ORDERED: MAGNESIUM296 ML/BTL PO (10:35)
[2019-10-29] MEDS ORDERED: MIRALAX3350 N1 PO (10:35)
[2019-10-30] MEDS ORDERED: OCUVITE PO (17:29)
== END 2019-10-29 11:01 | disposition home or self-care (01) ==
PROVIDERS: Family Medicine
DX: K59.00 Constipation, unspecified (principal)
CPT/HCPCS: S0164

== ENCOUNTER 2019-10-30 16:23 | Inpatient (IN) | payer MEDICARE, BC ==
[~2019-10-30] VITALS: Ht 170.2 cm; Wt 75.0 kg
[~2019-10-30 16:23] MED LIST changes: +MAGNESIUM296 ML/BTL PO; +MIRALAX3350 N1 PO; +PHENERGAN25 MG/TAB PO
--- NOTE | 2019-10-30 16:23 | NUR ---
PT OT ROOM FOR BEDSIDE TRIAGE.
--- NOTE | 2019-10-30 16:50 | NUR ---
PT STATES SHE WAS HERE LST EVENING ND SENT HOME THRU THE NIGHT THE PAIN AND NAUSEA GOT WORSE PROMTNG HER TO COME IN AGAIN, ABD TENDER TO PLAPATION, BOWEL SOUNDS HYPOACTIVE AND PT SHOWS S/S OF DISCOMFORT, WILL MEDICATE ORDERED
[2019-10-30 17:04] LABS: HEMATOCRIT 39.3 % (37.0-47.0); IMMATURE GRANULOCYTES 0.4 % (0.0-5.0); MEAN CELL VOLUME 90.3 fL CALC (80.0-100.0); MEAN CORPUSCULAR HGB 29.9 pG CALC (26.0-32.0); MEAN CORPUSCULAR HGB CONC 33.1 g/L CALC (32.0-36.0); NEUT# 8.07 thou/uL (2.00-7.15); RED BLOOD COUNT 4.35 mill/uL (4.20-5.60); RED CELL DISTRI WIDTH 14.4 % (11.5-15.5)
--- NOTE | 2019-10-30 17:04 | NUR ---
MEDICATED FOR PAIN AND NAUSEA THEN TO CT SCAN ORDERED
[2019-10-30 17:23] LABS: ALBUMIN 4.1 g/dL (3.2-5.0); ALKALINE PHOSPHATASE 83 u/l (38-126); ANION GAP 16 (6-22 (CALC)); BUN 17 mg/dL (8-23); BUN/CREATININE RATIO 30 (12-20 (CALC)); CARBON DIOXIDE 25 mmol/l (22-30); CHLORIDE 94 mmol/l (95-108); CREATININE 0.6 mg/dL (0.5-1.0); GFR > 60 ML/MIN (>=60 (CALC)); GFR FOR AFR.AMER. > 60 ML/MIN (>=60 (CALC)); SGOT/AST 35 u/l (9-36); SODIUM 131 mmol/l (137-146)
[2019-10-30 17:24] LABS: BILIRUBIN, TOTAL 0.6 mg/dL (0.0-1.4)
[2019-10-30] MEDS ORDERED: OCUVITE PO (17:29)
--- NOTE | 2019-10-30 19:10 | NUR ---
NG PLACED VIA RIGHT NARE. TOLERATED WELL. TO LCS.
[2019-10-30 20:27] LABS: URINE BILIRUBIN - DIPSTICK NEGATIVE (NEGATIVE); URINE BLOOD DIPSTICK NEGATIVE (NEGATIVE); URINE COLOR YELLOW; URINE GLUCOSE - DIPSTICK NEGATIVE (NEGATIVE); URINE KETONE 40 mg/dL (NEGATIVE); URINE LEUK ESTERASE TRACE (NEGATIVE); URINE NITRITE - DIPSTICK NEGATIVE (Negative); URINE PROTEIN - DIPSTICK NEGATIVE (NEG-TRACE); URINE SPECIFIC GRAVITY 1.015; URINE UROBILINOGEN - DIPSTICK 0.2 E.U./dL (0.2)
--- NOTE | 2019-10-30 20:35 | NUR ---
Admission Note Report Given to: RAMON CUNNINGHAM Transported by: Wheelchair Y Stretcher Transported with: Y Nurse Transporter Y Patent IV Y O2 Section Leader And Machine Setter Location: ICU Y MS2
--- NOTE | 2019-10-30 20:35 | NUR ---
PT ARRIVED TO FLOOR VIA STRETCHER. PT AMBULATED FROM STRETCHER TO BED WITH STEADY GAIT. NG TUBE NOTED TO RIGHT NARE WITH GREEN OUTPUT AT LOW/INTERMITENT SUCTION. PT C/O ABD PAIN 03/31. SALOON KEEPER PHYSICIAN NOTIFIED AT THIS TIME. PT ORIENTED TO ROOM AND CALL LIGHT SYSTEM. NO APPARENT DISTRESS NOTED. CALL LIGHT WITHIN REACH. WILL CONTINUE TO MONITOR.
--- NOTE | 2019-10-30 20:44 | NUR ---
TO ROOM VIA STRETCHER.
[2019-10-30 21:12] VITALS: BP 152/79
--- NOTE | 2019-10-30 22:33 | NUR ---
PT MEDICATED WITH PRN IV MORPHINE FOR ABD PAIN. WILL CONTINUE TO MONITOR.
[2019-10-31] VITALS (11 sets, daily range): BP systolic 103–140; BP diastolic 53–75
--- NOTE | 2019-10-31 02:05 | NUR ---
PT RESTING IN BED WITH EYES CLOSED. PT WAKES EASILY. C/O ABD PAIN 05/31. WILL MEDICATE AT NEXT AVAILABLE DUE TIME. NG TUBE REMAINS IN PLACE. WILL CONTINUE TO MONITOR.
--- NOTE | 2019-10-31 05:54 | NUR ---
ASSISTED PT TO BSC. PT VOIDED 300ML CLEAR DARK YELLOW URINE. ASSISTED BACK TO BED. CALL LIGHT WITHIN REACH. WILL CONTINUE TO MONITOR.
--- NOTE | 2019-10-31 07:45 | NUR ---
RESTING WITH EYES CLOSED ON ROUNDS. RESP NON-LABORED.
--- NOTE | 2019-10-31 09:00 | NUR ---
AWAKE ON ROUNDS. RESP SHALLOW/NON-LABORED. LUNGS CLEAR THROUGHOUT. USING O2 AT 2 L NC. ABD DISTNEDED AND FIRM, UNABLE TO AUSCULTATE BOWEL SOUNDS. NGT IN PLACE TO LIS, DRAINING GREEN LIQUID WITH DARK FLECKS. PATIENT C/O ABD PAIN AND NAUSEA. IV IN RAC, SITE BENIGN, LR INFUSING AT 100 ML/HR. DISCUSSED PLAN OF CARE.
--- NOTE | 2019-10-31 09:30 | NUR ---
DR CARPENTER IN TO SEE PATIENT EARLIER. PATIENT TO GO TO OR TODAY. DISCUSSED WITH PATIENT AND CONSENT FOR SURGERY OBTAINED.
--- NOTE | 2019-10-31 11:10 | NUR ---
PATIENT TO OR VIA BED ACCOMPANIED BY OR STAFF.
--- NOTE | 2019-10-31 13:00 | NUR ---
PATIENT REMAINS IN THE OR.
--- NOTE | 2019-10-31 15:15 | NUR ---
RETURNED FROM OR VIA BED. PATIENT DROWSY BUT AROUSES EASILY TO NAME. ANSWERS QUESTIONS APPROPRIATELY. RESP NON-LABORED, SLT SHALLOW. O2 ON AT 3 L NC. BREATH SOUNDS CLEAR THROUGHOUT LUNG GARY. NGT TO LCS WITH GREEN DRAINAGE WITH DARKER FLECKS. ABD WITH MIDLINE DSG CDI. WIGGINS DRAINING CLEAR MIKHAIL URINE. IV IN RAC SITE BENIGN, LR INFUSING AT 100 ML/HR.
--- NOTE | 2019-10-31 17:00 | NUR ---
PATIENT REMAINS DROWSY BUT EASILY AROUSABLE. INSTRUCTED ON USE OF INCENTIVE SPIROMETER. FAIR EFFIRT 1250 ML.
--- NOTE | 2019-10-31 19:12 | NUR ---
REPORT FROM SHELLI NAVARRO. PT RESTING WITH EYE CLOSED. WAKES EASILY. DENIES ANY PAIN AT THIS TIME. NG TUBE TO RIGHT NARE AT LOW CONTINUOUS SUCTION WITH GREEN OUTPUT NOTED. WIGGINS CATHETER PATENT DRAINING TO GRAVITY. ABD INCISION WITH DRESSING, CDI. DISCUSSED POC. PT VERBALIZED UNDERSTANDING. CALL LIGHT WITHIN REACH. WILL CONTINUE TO MONITOR.
--- NOTE | 2019-10-31 23:05 | NUR ---
PT SITTING UP IN BED WATCHING TV. NO APPARENT DISTRESS NOTED. PT ALERT AND ORIENTED. ABD BINDER IN PLACE. WIGGINS REMAINS PATENT DRAINING TO GRAVITY. NG TUBE IN PLACE WITH LOW CONTINUOUS SUCTION. DENIES ANY PAIN. CALL LIGHT WITHIN REACH. WILL CONTINUE TO MONITOR.
--- NOTE | 2019-11-01 03:23 | NUR ---
PT RESTING IN BED. NO APPARENT DISTRESS NOTED. NG TUBE REMAINS IN PLACE. WIGGINS PATENT DRAINING TO GRAVITY. CALL LIGHT WITHIN REACH. WILL CONTINUE TO MONITOR.
[2019-11-01 03:40] VITALS: BP 155/71
--- NOTE | 2019-11-01 07:50 | NUR ---
AWAKE ON ROUNDS. RESP NON-LABORD. LUNGS CLEAR THROUGHOUT. NGT TO LCS WITH GREEN OUTPUT. ABD DISTNEDED AND FIRM WITH HYPOACTIVE BOWEL SOUNDS, SURGICALLY TENDER. WIGGINS RAINS CLEAR MIKHAIL URINE. SCD'S ON. NO PERIPHERAL EDEMA, PULSES PALPABLE. IV IN LFA WITH LR AT 100 ML/HR, SITE BENIGN. ASSISTED PATIENT TO BEDSIDE CHAIR. REINSTRICTED ON IMPORTANCE OF AMBULATION AND USE OF ICD, TCDB. PATIENT VERBALIZES UNDERSTANDING. CALL REY IN REACH.
--- NOTE | 2019-11-01 10:30 | NUR ---
PATIENT CONTINUES UP IN CHAIR. TAKING LOZENGES TO SOOTH THROAT. MEDICATED FOR C/O OPERATIVE PAIN.
--- NOTE | 2019-11-01 12:00 | NUR ---
ASSISTED KARTHIK TO BED. TOELRATED UP IN CHAIR WELL. USING IS-1500 ML.STATES PAIN FREE AT THIS TIME. IV SITE BENIGN.
[2019-11-01 12:47] LABS: HEMOGLOBIN 12.1 g/dl (12.0-16.0); IMMATURE GRANULOCYTES 0.5 % (0.0-5.0); MEAN CELL VOLUME 95.4 fL CALC (80.0-100.0); MEAN CORPUSCULAR HGB 29.6 pG CALC (26.0-32.0); NEUT# 8.45 thou/uL (2.00-7.15); RED BLOOD COUNT 4.09 mill/uL (4.20-5.60); RED CELL DISTRI WIDTH 14.6 % (11.5-15.5)
[2019-11-01 13:02] LABS: ANION GAP 10 (6-22 (CALC)); BUN 24 mg/dL (8-23); BUN/CREATININE RATIO 35 (12-20 (CALC)); CARBON DIOXIDE 28 mmol/l (22-30); CHLORIDE 98 mmol/l (95-108); CREATININE 0.7 mg/dL (0.5-1.0); GFR > 60 ML/MIN (>=60 (CALC)); GFR FOR AFR.AMER. > 60 ML/MIN (>=60 (CALC)); SODIUM 132 mmol/l (137-146)
[2019-11-01 13:09] LABS: MAGNESIUM 2.4 mg/dL (1.6-2.3)
[2019-11-01 15:42] VITALS: BP 95/48
--- NOTE | 2019-11-01 16:15 | NUR ---
DISCUSSED LOW URINE OUTPUT AN DCONCENTRATED DARK MIKHAIL URINE WITH E LUCINDA/BERNARDINO. FLUID BOLUS STARTED TO RUN OVER 3 HOURS.
[2019-11-01 17:08] VITALS: BP 98/56
[2019-11-01 18:30] VITALS: BP 138/75
--- NOTE | 2019-11-01 19:05 | NUR ---
REPORT FROM KACEY NAVARRO. PT SITTING UP IN BED RESTING COMFORTABLY. NO APPARENT DISTRESS NOTED. NG TUBE NOTED TO RIGHT NARE WITH GREEN OUTPUT TO LCS. PT DENIES ANY PAIN OR DISCOMFORT. ABD BINDER, DRESSING CDI. SCD IN PLACE. IV SITE APPEARS HEALTHY. DISCUSSED POC. PT VERBALIZED UNDERSTANDING. CALL LIGHT WITHIN REACH. WILL CONTINUE TO MONITOR.
--- NOTE | 2019-11-01 23:06 | NUR ---
PT RESTING IN BED. NO APPARENT DISTRESS NOTED. PT WAKES EASILY. ICE CHIPS PROVIDED. WIGGINS REMAINS PATENT DRAINING TO GRAVITY, OUTPUT MIKHAIL COLOR. NG TUBE IN PLACE, AT [facility]. CALL LIGHT WITHIN REACH. WILL CONTINUE TO MONITOR.
[2019-11-02] VITALS (23 sets, daily range): BP systolic 60–138; BP diastolic 40–72
--- NOTE | 2019-11-02 03:55 | NUR ---
PT FOUND TO HAVE MANUAL BP OF 60/40 HR 99. PT AWAKE AND ALERT. DENIES ANY PAIN. EDEMA NOTED TO UPPER EXTREMITIES AND SMALL AMOUNT OF DARK OUTPUT. PT PLACED IN TRANDELENBURG AND MANAGER CASH PHYSICIAN NOTIFIED. ORDERS RECEIVED TO BOLUS AND TRANSFER TO ICU. PT MADE AWARE AND VERBALIZED UNDERSTANDING.
--- NOTE | 2019-11-02 03:59 | NUR ---
BOLUS INITIATED. CURRENT BP 62/46. PT REMAINS AWAKE AND ALERT.
--- NOTE | 2019-11-02 04:06 | NUR ---
CURRENT BP 70/42. REPORT CALLED TO PRIYA IN ICU.
--- NOTE | 2019-11-02 04:20 | NUR ---
PT TRANSFERED TO ICU BED 8.
--- NOTE | 2019-11-02 04:25 | NUR ---
PATIENT TRANSFERED FROM M/S AT 0425. PATIENT ALERT AND ORIENTED. RESP EVEN AND UNLABORED. NG TUBE PRESENT RIGHT NARES, LOW CONT SUCTION DRAINING DARK GREEN FLUID. ABD BINDER IN PLACE. BP LOW 70/40. WIGGINS DRAINING MIKHAIL URINE. FALL PRECAUTIONS IN PLACE. PATIENT INFORMED TO CALL WITH ANY QUESTIONS OR CONCERNS.
--- NOTE | 2019-11-02 05:05 | NUR ---
PATIENT PLACE ON O2 DUE TO LOW SAT.
--- NOTE | 2019-11-02 06:45 | NUR ---
RECIEVED REPORT FROM RAMON POWERS. ASSUMED PT CARE.
--- NOTE | 2019-11-02 07:30 | NUR ---
PT RESTING IN BED, A&OX4, ABLE TO MAKE NEEDS KNOWN. PT DENIES CP, SOB OR DISTRESS AT THIS TIME. RESPIRATIONS EVEN/UNLABORED, SAO2@94%RA, LS CLEAR THROUGHOUT, ABDOMEN BINDER INTACT, AUDIBLE BS. PT REPORTS PASSING GAS, NO EDEMA NOTED, SCD'S BLE INTACT. NG INTACT, PLACEMENT VERIFIED VIA AUSCULTATION, CONNECTED TO LOW CONTINUOUS SUCTION WITH DARK GREAN DRAINAGE NOTED IN BSD. PT REMAINS NPO. CALL LIGHT IN REACH, WILL MONITOR.
--- NOTE | 2019-11-02 09:54 | NUR ---
FAMILY ARRIVED AT BEDSIDE. PT IN GOOD SPIRITS,STATED SHE WAS READY TO GET THE NG TUBE OUT AND TRY SOME FOOD.
--- NOTE | 2019-11-02 11:00 | NUR ---
ISIS RIOS AT BEDSIDE FOR ASSESSMENT AND TO DISCUSS PLAN OF CARE.
--- NOTE | 2019-11-02 12:05 | NUR ---
PT RESTING IN BED, TALKING ON PERSONAL CELL PHONE.
--- NOTE | 2019-11-02 13:00 | NUR ---
DR. RADER AND ISIS RIOS AT BEDSIDE FOR ASSESSMENT AND TO DISCUSS PLAN OF CARE. NEW ORDERS RECIEVED. CALL LIGHT IN REACH. WILL MONITOR.
--- NOTE | 2019-11-02 13:33 | NUR ---
DR. LUCIANO AT BEDSIDE FOR ASSESSMENT AND TO DISCUSS PLAN OF CARE. NG TUBE REMOVED. ADVANCED TO CLEAR LIQUID DIET. PT TOLERATED WELL.
[2019-11-02 13:52] LABS: URINE BILIRUBIN - DIPSTICK MODERATE (NEGATIVE); URINE BLOOD DIPSTICK TRACE-INTACT (NEGATIVE); URINE GLUCOSE - DIPSTICK NEGATIVE (NEGATIVE); URINE KETONE TRACE mg/dL (NEGATIVE); URINE LEUK ESTERASE NEGATIVE (NEGATIVE); URINE NITRITE - DIPSTICK POSITIVE (Negative); URINE PROTEIN - DIPSTICK 100 mg/dL (NEG-TRACE); URINE SPECIFIC GRAVITY >=1.030
[2019-11-02 14:00] LABS: URINE COLOR DK. YELLOW
[2019-11-02 14:01] LABS: URINE BACTERIA MODERATE hpf; URINE SQUAMOUS EPITHELIAL CELL FEW EPI/hpf (0-FEW)
[2019-11-02 15:14] LABS: CREATININE 1.6 mg/dL (0.5-1.0)
--- NOTE | 2019-11-02 15:44 | NUR ---
DAUGHTER MEKA CALLED, PERMISSION GRANTED FROM PT TO GIVE UPDATE.
--- NOTE | 2019-11-02 16:40 | NUR ---
PT RESTING IN BED WITH EYES CLOSED, URINE SAMPLE SENT TO LAB. RESPIRATION EVEN/UNLABORED. OFFERS NO COMPLAINTS AT THIS TIME. WIGGINS REMAINS PATENT, DRAINING TO BEDSIDE DRAINAGE VIA GRAVITY. REMAINS DARK TEA COLORED WITH SETIMENT, BOLUS RUNNING ORDERED. CALL LIGHT IN REACH. WILL MONITOR.
--- NOTE | 2019-11-02 19:00 | NUR ---
RECEIVED REPORT FROM AM NURSE . PATIENT RESTING IN BED. APPEAR TO BE IN NO DISTRESS. WILL CONTINUE TO MONITOR.
--- NOTE | 2019-11-02 20:00 | NUR ---
ASSESSMENT COMPLETED. PATIENT WITH NO COMPLAINT OF PAIN OR DISCOMFORT. PATIENT RESTING. VITALS STABLE. NO SIGNS OF DISTRESS. FLUIDS INFUSING. WIGGINS WITH DARK COLORED OUTPUT. WILL CONTINUE TO MONITOR.
--- NOTE | 2019-11-02 22:00 | NUR ---
PATIENT RESTING IN BED. VITALS STABLE. PATIENT WITH NO COMPLAINTS OF PAIN OR DISCOMFORT. FLUIDS INFUSING. REBECCA CONTINUE TO MONITOR.
[2019-11-03] VITALS (25 sets, daily range): BP systolic 83–139; BP diastolic 48–80
--- NOTE | 2019-11-03 | NUR ---
PATIENT ASSISTED WITH REPOSITIONING. PATIENT DID COMPLAIN OF ABDOMINAL DISCOMFORT. PATIENT MEDICATED. VITALS STABLE. NO SIGNS OF DISTRESS. ABDOMINAL BINDER READJUSTED. FLUIDS INFUSING. WILL CONTINUE TO MONITOR.
--- NOTE | 2019-11-03 02:00 | NUR ---
PATIENT SLEEPING. FLUIDS INFUSING. PATIENTS VITALS STABLE. PATIENT WITH NO SIGNS OF DISTRESS. WILL CONTINUE TO MONITOR PATIENT.
--- NOTE | 2019-11-03 03:00 | NUR ---
PATIENT SLEEPING. PATIENT WITH NO SIGNS OF DISTRESS. PATIENT CONTINUES WITH FLUIDS INFUSING. WILL CONTINUE TO MONITOR.
--- NOTE | 2019-11-03 04:00 | NUR ---
SKIN LIFTER BACON IN ROOM. PATIENT WITH NO REQUEST. PATIENT RESTING IN BED.
[2019-11-03 05:21] LABS: IMMATURE GRANULOCYTES 0.7 % (0.0-5.0); MEAN CELL VOLUME 94.7 fL CALC (80.0-100.0); MEAN CORPUSCULAR HGB CONC 31.7 g/L CALC (32.0-36.0); NEUT# 7.08 thou/uL (2.00-7.15); RED BLOOD COUNT 3.37 mill/uL (4.20-5.60)
[2019-11-03 05:24] LABS: HEMATOCRIT 31.9 % (37.0-47.0); HEMOGLOBIN 10.1 g/dl (12.0-16.0)
--- NOTE | 2019-11-03 05:26 | NUR ---
PATIENT RESTING IN BED. PATIENT WITH NO SIGNS OF PAIN OR DISCOMFORT. FLUIDS INFUSING. VITALS STABLE. NASAL CANNULA IN PLACE. O2>92%. WILL CONTINUE TO MONITOR.
[2019-11-03 05:28] LABS: CREATININE 1.3 mg/dL (0.5-1.0)
--- NOTE | 2019-11-03 06:20 | NUR ---
PATIENT ASSISTED WITH BATH. AMBULATED TO BATHROOM. LINENS CHANGED. PATIENT ASSIST X1. FLUIDS INFUSING. NASAL CANNULA. PATIENT WITH SOME COMPLAINTS OF DISCOMFORT. VITALS STABLE. WILL CONTINUE TO MONITOR.
--- NOTE | 2019-11-03 07:00 | NUR ---
pt awake in recliner; no apparent distress noted; pt offers no complaints; assessment completed at this time; pt alert and oriented; denies pain; no n/v noted; pt admits to tolerating cl liquid diet; resp even and unlabored; lungs clear; skin color wnl; o2 per nc at 2L; no cough noted; hr reg; strong pulses; no edema noted; sr on monitor; abd soft with bs noted to bilat lower quads; no bm noted per staff; pt admits to passing flatus; abd binder intact; midline incision noted with alonzo intact/ well approx; no redness noted to incision; drsg changed this am; #24 patent to lh; ivf infusing without complication; no redness or edema noted at site; plan of care/ am meds explained; call light within reach; will continue to monitor
--- NOTE | 2019-11-03 08:04 | NUR ---
awake in recliner eating breakfast; no apparent distress noted; pt offers no complaints; sr on monitor; ramírez to gravity; o2 per nc; call light within reach; will continue to monitor
--- NOTE | 2019-11-03 09:20 | NUR ---
Dr Martinez present at bedside to assess pt and discuss plan of care
--- NOTE | 2019-11-03 10:01 | NUR ---
awake in recliner; offers no complaints; no apparent distress noted; ramírez to gravity; o2 per nc; abd binder intact; sr on monitor; will continue to monitor
--- NOTE | 2019-11-03 10:21 | NUR ---
ramírez removed as per verbal orders
--- NOTE | 2019-11-03 10:39 | NUR ---
IV SITE REMOVED WITH CATHETER INTACT DUE TO LEAKING.
--- NOTE | 2019-11-03 11:50 | NUR ---
Dr Ramirez present at bedside to assess pt and discuss plan of care
--- NOTE | 2019-11-03 12:05 | NUR ---
awake in bed eating lunch; offers no complaints; no apparent distress noted; o2 per nc; deny need to urinate; iv intact and patent; call light within reach; will continue to monitor
--- NOTE | 2019-11-03 14:13 | NUR ---
resting in bed with eyes closed; no apparent distress noted; o2 per nc; iv intact; sr on monitor; du light within reach
--- NOTE | 2019-11-03 16:07 | NUR ---
PT at bedside
--- NOTE | 2019-11-03 16:20 | NUR ---
awake in recliner; offers no complaints; denies pain; sr on monitor; void 100cc urine s/p ramírez removal; call light within reach
--- NOTE | 2019-11-03 18:23 | NUR ---
awake in bed; no apparent distress noted; pt offers no complaints; denies pain or need for pain medication; repositions self for comfort; sr on monitor; iv intact and patent; call light within reach
--- NOTE | 2019-11-03 22:00 | NUR ---
eyes closed. no distress. ivf cont.
--- NOTE | 2019-11-03 22:45 | NUR ---
awake. denies acute pain. abd dsg cdi. abd binder cont. cafeteria monitor shows sinus rhythm. #22 rt wrist. rl infusing @ 125cchr. assisted to bsc. voided 100cc laura colored urine. po fluids encouraged. fall precautions cont.
[2019-11-04] VITALS (18 sets, daily range): BP systolic 101–146; BP diastolic 57–83
--- NOTE | 2019-11-04 00:01 | NUR ---
eyes closed. no apparent distress. ivf cont.
--- NOTE | 2019-11-04 02:00 | NUR ---
resting quietly. resps even & unlabored. no apparent distress.
--- NOTE | 2019-11-04 03:30 | NUR ---
dilaudid 1mg ivp per request for pain.
--- NOTE | 2019-11-04 05:30 | NUR ---
lab here. blood drawn.
[2019-11-04 07:01] LABS: ANION GAP 11 (6-22 (CALC)); BUN 30 mg/dL (8-23); BUN/CREATININE RATIO 43 (12-20 (CALC)); CARBON DIOXIDE 22 mmol/l (22-30); CHLORIDE 103 mmol/l (95-108); CREATININE 0.7 mg/dL (0.5-1.0); GFR > 60 ML/MIN (>=60 (CALC)); GFR FOR AFR.AMER. > 60 ML/MIN (>=60 (CALC)); POTASSIUM 4.3 mmol/l (3.5-5.1); SODIUM 132 mmol/l (137-146)
--- NOTE | 2019-11-04 07:20 | NUR ---
pt awake in recliner; no apparent distress noted; pt offers no complaints; assessment completed at this time; pt alert and oriented; denies pain; no n/v noted per radio script writer; resp even and unlabored; lungs clear; skin color wnl; o2 per nc; hr reg; strong pulses; no edema noted; sr on monitor; abd soft with bs present; no bm noted; pt admits to passing flatus; pt voiding dk laura cloudy urine; bsc; #22 in rw patent with ivf infusing without complication; no redness or edema noted at site; scabs noted to ble; abd dressing cdi to midline abd incision; alonzo intact and well approx; no s/sx of infection noted; 3 lap dressings noted to left of incision; plan of care/ meds; call light within reach; will continue to monitor
--- NOTE | 2019-11-04 08:17 | NUR ---
awake up to recliner; no apparent distress noted; pt offers no complaints; sr on monitor; call light within reach; will continue to monitor
[2019-11-04 09:22] LABS: HEMATOCRIT 32.9 % (37.0-47.0); HEMOGLOBIN 10.4 g/dl (12.0-16.0); MEAN CELL VOLUME 95.6 fL CALC (80.0-100.0); MEAN CORPUSCULAR HGB 30.2 pG CALC (26.0-32.0); MEAN CORPUSCULAR HGB CONC 31.6 g/L CALC (32.0-36.0); RED BLOOD COUNT 3.44 mill/uL (4.20-5.60)
--- NOTE | 2019-11-04 09:30 | NUR ---
Dr Martinez present at bedside to assess pt and discuss plan of care; u/o and concentration explained to MD; orders to be placed
--- NOTE | 2019-11-04 10:07 | NUR ---
awake in recliner; no apparent distress noted; pt offers no complaints; iv intact and patent; no redness or edema noted at site; sr on monitor; o2 per nc; call light within reach; will continue to monitor
--- NOTE | 2019-11-04 11:50 | NUR ---
Dr Ramirez present at bedside to assess pt and discuss plan of care
--- NOTE | 2019-11-04 12:13 | NUR ---
awake in chair; assisted to bsc; offers no complaints; iv intact and patent; no redness or edema noted at site; sr/st on monitor; o2 per nc; call light within reach; will continue to monitor
--- NOTE | 2019-11-04 14:00 | NUR ---
awake in recliner; offers no complaints; visitor at bedside; will continue to monitor
--- NOTE | 2019-11-04 16:10 | NUR ---
awake; assisted to bsc; offers no complaints; deny needs for pain meds; iv intact and patent; no redness or edema noted at site; sr on monitor; call light within reach; will continue to monitor
--- NOTE | 2019-11-04 17:03 | NUR ---
report given to Aide Garcia LPN
--- NOTE | 2019-11-04 17:40 | NUR ---
sitting in bedside chair. denies c/o.
--- NOTE | 2019-11-04 19:45 | NUR ---
awake. no acute distress. geriatric physical therapist shows sinus rhythm hr 88. abd dsg has scant amt yellow drainage. dsg & abd binder cont. po fluids taken well. voids per bsc. fall precautions cont.
--- NOTE | 2019-11-04 21:10 | NUR ---
assisted to bed. percocet 5mg po given per request for pain.
[2019-11-05] VITALS (9 sets, daily range): BP systolic 95–145; BP diastolic 52–67
--- NOTE | 2019-11-05 00:01 | NUR ---
eyes closed. no distress. laboratory monitor shows sinus rhythm hr 80.
--- NOTE | 2019-11-05 02:00 | NUR ---
resting quietly. resps even & unlabored. no apparent distress.
--- NOTE | 2019-11-05 03:15 | NUR ---
up to bsc. rosalinda well.
--- NOTE | 2019-11-05 05:15 | NUR ---
report received from Aide Garcia LPN
[2019-11-05 05:27] LABS: HEMATOCRIT 32.3 % (37.0-47.0); HEMOGLOBIN 10.3 g/dl (12.0-16.0); MEAN CELL VOLUME 92.6 fL CALC (80.0-100.0); MEAN CORPUSCULAR HGB 29.5 pG CALC (26.0-32.0); MEAN CORPUSCULAR HGB CONC 31.9 g/L CALC (32.0-36.0); RED BLOOD COUNT 3.49 mill/uL (4.20-5.60); RED CELL DISTRI WIDTH 14.6 % (11.5-15.5)
[2019-11-05 05:48] LABS: ANION GAP 9 (6-22 (CALC)); BUN 24 mg/dL (8-23); BUN/CREATININE RATIO 32 (12-20 (CALC)); CARBON DIOXIDE 25 mmol/l (22-30); CHLORIDE 100 mmol/l (95-108); CREATININE 0.7 mg/dL (0.5-1.0); GFR > 60 ML/MIN (>=60 (CALC)); GFR FOR AFR.AMER. > 60 ML/MIN (>=60 (CALC)); POTASSIUM 3.9 mmol/l (3.5-5.1); SODIUM 130 mmol/l (137-146)
--- NOTE | 2019-11-05 06:35 | NUR ---
pt resting in bed with eyes closed; no apparent distress noted; easily aroused; offers no complaints; denies pain; no n/v noted; resp even and unlabored; lungs clear; skin color wnl; ra; hr reg; strong pulses; 1+ edema noted to ble; sr on monitor; abd soft with bs hypoactive; no bm noted; pt admits to passing flatus; admits to voiding without pain or burning; no urine to inspect at this time; bsc; #22 patent to rw with ivf infusing without complication; no redness or edema noted at site; midline incision noted to abd with alonzo intact; incision well approx without s/sx of infection; abd binder in place; IS at bedside; pt encouraged to use q1 hr X10 reps; plan of care/ am meds explained; call light within reach; will continue to monitor
--- NOTE | 2019-11-05 07:25 | NUR ---
11/04/19 Patient is seen for functional training due to prolonged hospital stay and multiple Dx. She has vitals stable and is on 02 nc. 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 Am Pac is 12 indicating she would do well in ECF to recover and lessen her fall risk. She is able to ambulate 80 feet on a level surface with mod assist of 1 but does live alone. She is a high fall risk with DGI 12/31
--- NOTE | 2019-11-05 08:14 | NUR ---
Dr Martinez present at bedside to assess pt and discuss plan of care
--- NOTE | 2019-11-05 08:20 | NUR ---
pt awake in recliner; offers no complaints; no apparent distress noted; sr on monitor; iv intact and patent; no redness or edema noted at site; ra; call light within reach; will continue to monitor
--- NOTE | 2019-11-05 10:15 | NUR ---
awake in recliner; offers no complaints; no apparent distress noted; ra; sr; pt deny pain; call light within reach; will continue to monitor
--- NOTE | 2019-11-05 12:10 | NUR ---
Dr Ramirez present at bedside to assess pt and discuss plan of care
--- NOTE | 2019-11-05 12:20 | NUR ---
awake in recliner; no apparent distress noted; pt offers no complaints; deny pain; iv intact; sr on monitor; call light within reach; will continue to monitor
--- NOTE | 2019-11-05 14:00 | NUR ---
awake in bed; staff assisted with complete bath; complete linen change; pt walked within ICU unit and outside within hallway of ICU; tolerated well; no shortness of breath noted; placed back in recliner; admits to passing flatus; still no bm; sr on monitor; call light within reach; will continue to monitor
--- NOTE | 2019-11-05 15:30 | NUR ---
PT at bedside
--- NOTE | 2019-11-05 16:05 | NUR ---
awake in recliner; offers no complaints; no apparent distress noted; pt deny pain; dressing changed to midline incision; abd pad placed with abd binder intact; sr on monitor; iv intact; call light within reach; will continue to monitor
--- NOTE | 2019-11-05 16:10 | NUR ---
PATIENT IN RECLINER ON ENTRY IN NO APPARENT DISTRESS. PATIENT CONSENTED TO PHYSICAL THERAPY TREATMENT OF AMBULATION PRACTICE IN [facility] FOR MUSCULAR STRENGTH, BALANCE AND ENDURANCE. PATIENT THEN AMBULATED WITH CGA APPROXIMATELY 150FT WITH FAIR STABILITY THROUGHOUT. ON OCCASIONS PATIENT WAS UNSTEADY ON FEET HOWEVER DID NOT REQUIRE ASSISTANCE FROM PHYSICAL THERAPIST TO CORRECT BALANCE. PATIENT REPORTS FEELING WEAKER THAN PRIOR TO ADMISSION AND ADMITS FEELING UNSTEADY OCCASIONALLY WHEN AMBULATING. PATIENT THEN RETURNED TO CHAIR FEELING WELL. PATIENT WAS THEN MADE COMFORTABLE WITH CALL REY IN REACH. NO ADVERSE EFFECT OF TX, NO QUESTIONS OR CONCERNS FOLLOWED. PATIENT AND PHYSICAL THERAPIST AGREED THAT THIS PATIENT WOULD BENEFIT FROM HOME HEALTH PT UPON DISCHARGE TO CONTINUE TO WORK ON BALANCE AND ENDURANCE TO LIVE INDEPENDENTLY POSSIBLE. AMPAC REMAINS UNCHANGED. T/A-15 MINS.
--- NOTE | 2019-11-05 18:03 | NUR ---
awake in recliner; offers no complaints; deny pain; iv intat; sr on monitor; call light within reach
--- NOTE | 2019-11-05 19:28 | NUR ---
REPORT RECEIVED. PT SITTING UP IN CHAIR AT BEDSIDE. PT ALERT AND ORIENTED. NO APPARENT DISTRESS NOTED. BLE +3, ENCOURAGED ELEVATION. DISCUSSED POC. PT VERBALIZED UNDERSTANDING. PT C/O DISCOMFORT IN LEGS, REFUSED PAIN MEDICATION AT THIS TIME. CALL LIGHT WITHIN REACH. WILL CONTINUE TO MONITOR.
--- NOTE | 2019-11-05 23:21 | NUR ---
PT RESTING IN BED WITH EYES CLOSED. NO APPARENT DISTRESS NOTED. RESPIRATIONS EVEN AND UNLABORED. CALL LIGHT WITHIN REACH. WILL CONTINUE TO MONITOR.
[2019-11-06] VITALS: BP 118/61
--- NOTE | 2019-11-06 03:50 | NUR ---
PT RESTING IN BED WITH EYES CLOSED. NO APPARENT DISTRSS NOTED. RESPIRATIONS EVEN AND UNLABORED. CALL LIGHT WITHIN REACH. WILL CONTINUE TO MONITOR.
[2019-11-06 05:00] VITALS: BP 138/71
[2019-11-06 05:41] LABS: HEMOGLOBIN 10.4 g/dl (12.0-16.0); MEAN CELL VOLUME 91.2 fL CALC (80.0-100.0); MEAN CORPUSCULAR HGB 29.6 pG CALC (26.0-32.0); MEAN CORPUSCULAR HGB CONC 32.5 g/L CALC (32.0-36.0); RED BLOOD COUNT 3.51 mill/uL (4.20-5.60); RED CELL DISTRI WIDTH 14.6 % (11.5-15.5)
--- NOTE | 2019-11-06 06:45 | NUR ---
RECIEVED REPORT FROM MARISA, [facility].
[2019-11-06 07:15] VITALS: BP 159/73
--- NOTE | 2019-11-06 07:15 | NUR ---
PT A&OX4, ABLE TO MAKE NEEDS KNOWN. RESP EVEN/UNLABORED. SA02@98%RA. ABDOMEN BINDER IN PLACE, SJ CDI, EDGES APPROX. NO REDNESS NOTED. PT CONTINUES WITH BLE EDEMA AND BUE EDEMA. PT STATES IT IS BETTER THAN YESTERDAY. BSX4. CALL LIGHT IN REACH. WILL MONITOR.
--- NOTE | 2019-11-06 07:45 | NUR ---
DAUGHTER MEKA CALLED WITH CODE, UPDATE GIVEN.
--- NOTE | 2019-11-06 08:00 | NUR ---
DR. ACOSTA AT BEDSIDE FOR ASSESSMENT AND TO DISCUSS PLAN OF CARE. NEW ORDERS RECIEVED.
--- NOTE | 2019-11-06 08:30 | NUR ---
PT ASSITED TO BSC.
[2019-11-06 08:39] LABS: ANION GAP 9 (6-22 (CALC)); BUN 19 mg/dL (8-23); BUN/CREATININE RATIO 27 (12-20 (CALC)); CARBON DIOXIDE 29 mmol/l (22-30); CHLORIDE 97 mmol/l (95-108); CREATININE 0.7 mg/dL (0.5-1.0); GFR > 60 ML/MIN (>=60 (CALC)); GFR FOR AFR.AMER. > 60 ML/MIN (>=60 (CALC)); POTASSIUM 3.8 mmol/l (3.5-5.1); SODIUM 131 mmol/l (137-146)
[2019-11-06 08:42] LABS: MAGNESIUM 1.6 mg/dL (1.6-2.3)
[2019-11-06 12:00] VITALS: BP 136/76
--- NOTE | 2019-11-06 13:00 | NUR ---
PT RESTING IN BED, CALL LIGHT IN REACH. WILL MONITOR.
--- NOTE | 2019-11-06 16:11 | NUR ---
PT SITTING IN BED, READING A BOOK. GETS TO BSC WITH STEADY GAIT. EDEMA GOING DOWN. CALL LIGHT IN REACH. WILL MONITOR.
[2019-11-06 16:15] VITALS: BP 145/86
--- NOTE | 2019-11-06 19:20 | NUR ---
BEDSIDE REPORT RECEIVED FROM RAMON JOHNSON. PT RESTING IN BED SEMI FOWLERS READING A BOOK; ALERT AND ORIENTED. DENIES PAIN, BUT DOES HAVE SOME ABDOMINAL TENDERNESS; ABDOMINAL BINDER IN PLACE. RESPIRATIONS EVEN AND UNLABORED ON ROOM AIR. PLAN OF CARE REVIEWED. PT ENCOURAGED TO VERBALIZE CONCERNS. STATES UNDERSTANDING. SAFET MEASURES IN PLACE. CALL LIGHT WITHIN REACH.
[2019-11-06 22:00] VITALS: BP 142/67
--- NOTE | 2019-11-06 22:32 | NUR ---
MIRALAX GIVEN PER ORDER; PT UP TO BSC FOR VOID AND VERY SMALL BOWEL MOVEMENT. NO OTHER REQUESTS OR CONCERNS AT THIS TIME. CALL LIGHT WITHIN REACH.
[2019-11-07] VITALS: BP 140/70
--- NOTE | 2019-11-07 00:19 | NUR ---
PT ASLEEP WITH NO SIGNS OF DISTRESS. RESPIRATIONS EVEN AND UNLABORED ON ROOM AIR. INDEPENDENT TO BSC. VSS. USES CALL LIGHT PRN FOR ASSISTANCE. CALL LIGHT WITHIN REACH.
[2019-11-07 04:44] VITALS: BP 161/74
--- NOTE | 2019-11-07 05:15 | NUR ---
PT SITTING UP READING; REQUESTS COFFEE; PROVIDED. NO FURTHER BOWEL MOVEMENTS SINCE MIRALAX GIVEN LAST NIGHT; PT REPORTS ABDOMINAL CRAMPING AND ACTIVE BOWELS. IV SITE APPEARS HEALTHY AND FLUSHES. VSS. CALL LIGHT WITHIN REACH.
--- NOTE | 2019-11-07 07:20 | NUR ---
PT RESTING IN BED, AM ASSESSMENT COMPLETED, SEE INTERVENTIONS, PT REPOSITIONSS SELF FOR COMFORT, COMPLAINS OF CRAMPING SINCE BEING MEDICATED YESTERDAY WITH MIRLAX, PT ALERT AND ORIENTED. DENIES PAIN, BUT DOES HAVE SOME ABDOMINAL TENDERNESS; ABDOMINAL BINDER IN PLACE. RESPIRATIONS EVEN AND UNLABORED ON ROOM AIR. NO SOB OR DISTRESS NOTED. PLAN OF CARE REVIEWED. SPOKE WITH PATIENT REGARDING INCREASED AMBULATION TODAY. STATES UNDERSTANDING. SAFETY MEASURES REINFORCED. CALL LIGHT WITHIN REACH.
--- NOTE | 2019-11-07 07:40 | NUR ---
LOTION APPPLIED TO FEET AND CLEAN SOCKS PROVIDED, PT OFFERS NO COMPLAINTS, ALL REY WIHTINR EACH, AWARE OF PENDING BREAKFAST WILL PLAN WALK AFTER AM MEAL.
--- NOTE | 2019-11-07 07:50 | NUR ---
SET UP ASSIST FOR MEAL. CALL REY WITHIN REACH
[2019-11-07 08:00] VITALS: BP 127/68
[2019-11-07 08:05] VITALS: BP 127/68
--- NOTE | 2019-11-07 08:25 | NUR ---
IN TO SEE PATIENT PLAN OF CARE DISCUSSED INCLUDING POTENTIAL D/C
--- NOTE | 2019-11-07 09:10 | NUR ---
PT AMBULATED OFF UNIT OVER TO MED SURG AND BACK WITH STEADY GAIT, SUPPOSITORY GIVEN ORDERED CALL REY WITHIN REACH, WILL CONTINUE TO MONITOR.
--- NOTE | 2019-11-07 09:42 | NUR ---
IN TO SEE PT
[2019-11-07 10:00] VITALS: BP 99/47
--- NOTE | 2019-11-07 10:01 | NUR ---
CASE MGMT AT BEDSIDE
--- NOTE | 2019-11-07 11:24 | NUR ---
PT OOB TO BSC INDEPEDENTLY, TOLERATES ACTIVITY WELL. SET UP ASSIST FOR AFTERNOON MEAL, CALL REY WITHIN REACH
[2019-11-07 12:00] VITALS: BP 99/47
--- NOTE | 2019-11-07 13:54 | NUR ---
INTO SEE PATIENT, PLAN OF CARE DISCUSSED AGAIN INCLUDING POTENTIAL D/C
[2019-11-07] MEDS ORDERED: COLACE100 MG PO (13:55)
[2019-11-07] MEDS ORDERED: DULCOLAX10 MG RE (13:55)
[2019-11-07] MEDS ORDERED: TRAMADOL HCL50 MG PO (13:59)
--- NOTE | 2019-11-07 15:31 | NUR ---
IV ACCESS REMOVED, PT TOLERATED WELL, PACKING UP BELONGINGS AND WAITING ON HH VERIFICATION AND HER TRANSPORT FOR D/C
--- NOTE | 2019-11-07 16:10 | NUR ---
Discharge instructions given. Patient verbalizes understanding of same. Discharged in stable condition via Wheelchair to Home with friend. All belongings sent with pt. SCRIPTS FOR D/C MEDICATIONS IN HAND.
== END 2019-11-07 16:10 | disposition home health service (06) | DRG 336 ==
LOC: ED 16:23 → ED-I 18:10 → ED 18:32 → MS2 18:33 → ICU 10-31 13:42 → MS2 10-31 13:43 → ICU 11-02 03:55
PROVIDERS: Family Medicine; Nurse Practitioner Family; Surgery; ADMIT Internal Medicine; ATTEND Internal Medicine
PROC: 0DNU0ZZ Release Omentum, Open Approach (ICD-10-PCS; principal; 2019-10-31)
PROC: 0DB80ZX Excision of Small Intestine, Open Approach, Diagnostic (ICD-10-PCS; 2019-10-31)
PROC: 0DJD4ZZ Inspection of Lower Intestinal Tract, Percutaneous Endoscopic Approach (ICD-10-PCS; 2019-10-31)
DX: K56.50 Intestinal adhesions [bands], unspecified as to partial versus complete obstruction (principal); E87.1 Hypo-osmolality and hyponatremia; N17.9 Acute kidney failure, unspecified; I95.81 Postprocedural hypotension; K56.7 Ileus, unspecified; E87.70 Fluid overload, unspecified; I10 Essential (primary) hypertension; E03.9 Hypothyroidism, unspecified; E21.3 Hyperparathyroidism, unspecified; K59.00 Constipation, unspecified; Z85.44 Personal history of malignant neoplasm of other female genital organs; Z87.891 Personal history of nicotine dependence; R10.13 Epigastric pain; R11.2 Nausea with vomiting, unspecified
CPT/HCPCS: G0378; J0131; J1100; J1650; Q9967; S0164

== ENCOUNTER 2021-10-03 16:57 | Inpatient (IN) | payer MEDICARE ==
[~2021-10-03] VITALS: Ht 170.2 cm; Wt 73.0 kg
[~2021-10-03 16:57] MED LIST changes: +COLACE100 MG PO; +DULCOLAX10 MG RE; +OCUVITE PO
[2021-10-03 18:47] LABS: HEMATOCRIT 36.1 % (37.0-47.0); HEMOGLOBIN 11.1 g/dl (12.0-16.0); IMMATURE GRANULOCYTES 0.1 % (0.0-5.0); MEAN CORPUSCULAR HGB 27.3 pG CALC (26.0-32.0); MEAN CORPUSCULAR HGB CONC 30.7 g/dL CAL (32.0-36.0); NEUT# 4.41 thou/uL (2.00-7.15); RED BLOOD COUNT 4.06 mill/uL (4.20-5.60)
--- NOTE | 2021-10-03 18:55 | NUR ---
PATIENT ASSISTED TO RESTROOM TO PROVIDE URINE SAMPLE/. MEDICATED FOR NAUSEA AND PAIN. MD AT BEDSIDE FOLLOWING RETURNING TO ROOM.
[2021-10-03 18:58] LABS: ALKALINE PHOSPHATASE 141 u/l (38-126); ANION GAP 12 (6-22 (CALC)); BUN 16 mg/dL (8-23); BUN/CREATININE RATIO 22 (12-20 (CALC)); CARBON DIOXIDE 27 mmol/l (22-30); CHLORIDE 101 mmol/l (95-108); CREATININE 0.7 mg/dL (0.5-1.0); GFR > 60 ML/MIN (>=60 (CALC)); GFR FOR AFR.AMER. > 60 ML/MIN (>=60 (CALC)); MEAN CELL VOLUME 88.9 fL CALC (80.0-100.0); SGOT/AST 47 u/l (9-36); SODIUM 135 mmol/l (137-146)
[2021-10-03 19:01] LABS: ALBUMIN 3.6 g/dL (3.2-5.0); BILIRUBIN, TOTAL 0.5 mg/dL (0.0-1.4); TOTAL PROTEIN 7.1 g/dL (6.3-8.2)
[2021-10-03 19:20] LABS: URINE BILIRUBIN - DIPSTICK NEGATIVE (NEGATIVE); URINE BLOOD DIPSTICK NEGATIVE (NEGATIVE); URINE COLOR YELLOW; URINE GLUCOSE - DIPSTICK NEGATIVE (NEGATIVE); URINE KETONE TRACE mg/dL (NEGATIVE); URINE LEUK ESTERASE NEGATIVE (NEGATIVE); URINE PROTEIN - DIPSTICK TRACE mg/dL (NEG-TRACE); URINE UROBILINOGEN - DIPSTICK 0.2 E.U./dL (0.2)
[2021-10-03 19:22] LABS: URINE NITRITE - DIPSTICK NEGATIVE (Negative)
--- NOTE | 2021-10-03 19:50 | NUR ---
PT RESTING, DENIES NEEDS. WILL CONTINUE TO MONITOR.
--- NOTE | 2021-10-03 20:13 | NUR ---
PT REPORTS PAIN AT 1/10, NO NAUSEA AT THIS TIME. PT STABLE AWAITING RESULTS. CALL LIGHT IN REACH, WILL CONTINUE TO MONITOR.
--- NOTE | 2021-10-03 21:10 | NUR ---
PT'S PAIN WELL CONTROLLED, DENIES NAUSEA. PT STABLE.
--- NOTE | 2021-10-03 22:13 | NUR ---
PT DENIES NAUSEA, PAIN IS INCREASED AND RATES AT 2/10. VSS. PT WITH CALL LIGHT IN REACH. PT AWARE OF ADMISSION AND WILL SOON BE TAKEN TO MED/SURG.
--- NOTE | 2021-10-03 22:50 | NUR ---
Admission Note Report Given to: RAMON CRANE Transported by: X Wheelchair Stretcher Transported with: X Nurse Transporter X Patent IV O2 Pants Cutter Location: ICU X MS2
--- NOTE | 2021-10-03 22:58 | NUR ---
RECEIVED REPORT FROM ED NURSE MORE, PATIENT TRANSPORTED BY WHEELCHAIR, PATIENT ALERT ORIENTED X 3 ABLE TO MAKE NEEDS KNONW, STILL HAVE SHARP PAIN ON ABDOMEN PS 3/10 STATED INCREASING, PATIENT MAINTAINED ON NPO, IV IS DISLODGE, PATIENT ORIENTED TO ROOM AND CALL LIGHT SYSTEM.
[2021-10-04] VITALS (12 sets, daily range): BP systolic 87–154; BP diastolic 48–76
--- NOTE | 2021-10-04 | NUR ---
NEW IV SITE G24 ON RT HAND PATENT FLUSHES WELL, HOOKED ON NS @ 100CC/HR INFUSING WELL.
--- NOTE | 2021-10-04 04:09 | NUR ---
PATIENT APPEARS TO BE SLEEPING WITH EYES CLOSED, BREATHING EVEN UNLABORED, NO DISCOMFORTS NOTED AT THIS TIME,CALL LIGHT AT REACH.
[2021-10-04 06:41] LABS: ANION GAP 10 (6-22 (CALC)); BUN 14 mg/dL (8-23); BUN/CREATININE RATIO 21 (12-20 (CALC)); CARBON DIOXIDE 27 mmol/l (22-30); CHLORIDE 104 mmol/l (95-108); CREATININE 0.7 mg/dL (0.5-1.0); GFR > 60 ML/MIN (>=60 (CALC)); GFR FOR AFR.AMER. > 60 ML/MIN (>=60 (CALC)); MAGNESIUM 2.8 mg/dL (1.6-2.3); POTASSIUM 3.6 mmol/l (3.5-5.1); SODIUM 137 mmol/l (137-146)
[2021-10-04 06:46] LABS: HEMATOCRIT 30.5 % (37.0-47.0); HEMOGLOBIN 9.9 g/dl (12.0-16.0); MEAN CELL VOLUME 87.9 fL CALC (80.0-100.0); MEAN CORPUSCULAR HGB 28.5 pG CALC (26.0-32.0); MEAN CORPUSCULAR HGB CONC 32.5 g/dL CAL (32.0-36.0); RED BLOOD COUNT 3.47 mill/uL (4.20-5.60); RED CELL DISTRI WIDTH 14.2 % (11.5-15.5)
--- NOTE | 2021-10-04 07:00 | NUR ---
SHIFT CHANGE REPORT, PT AWAKE ALERT AND ORIENTED, AMBULATING TO BR AT THIS TIME, REPORT ABD PAIN AT 1/10, IVF INFUSING, CALL REY IN REACH AND BED LOCKED IN LOWEST POSITION.
--- NOTE | 2021-10-04 09:12 | NUR ---
DR CARPENTER ROUNDED, REPORTED HES TAKING PT DOWN FOR PROCEDURE SHORTLY. PT C/O ABD PAIN @ 8, ADVISED TO RELAX SHE WILL BE GOING TO OR SHORTLY, WILL CONTINUE TO MONITOR.
--- NOTE | 2021-10-04 09:24 | NUR ---
OR TEAM HERE RECEIVING PT IN BED TRANSFERRING TO OR AT THIS TIME, PT ALREADY INFORMED OF LPROCEDURE BY SURGEON AND RN.
--- NOTE | 2021-10-04 16:35 | NUR ---
RECIEVED FROM OR TO ICU 3. ALERT AND ORIENTED X4. SURGICAL INCISION NOTED TO MID ABD WITH ISLAND DSG DRY, CLEAN, AND INTACT. COLOSTOMY NOTED TO RIGHT LOWER ABD STOMA PINK IN COLOR. SMALL AMOUNT OF BRIGHT RED BLOOD NOTED IN COLOSTOMY BAG. TLC NOTED TO LT SUBCLAVIAN PATENT FLUSHES WELL. WIGGINS CATH PATENT WITH MIKHAIL COLORED FLUID.
[2021-10-04 17:01] LABS: HEMATOCRIT 31.2 % (37.0-47.0); HEMOGLOBIN 9.6 g/dl (12.0-16.0)
--- NOTE | 2021-10-04 18:31 | NUR ---
RESTING IN BED CHEST RISING AND FALLING. NO S/S OF DISTRESS NOTED AT THIS TIME. IV ABT INFUSING AT THIS TIME. NO S/S OF ADVERSE REACTIONS NOTED.
--- NOTE | 2021-10-04 18:50 | NUR ---
OMAIRAAR RECEIVED FROM RAMON NEGRON
--- NOTE | 2021-10-04 20:41 | NUR ---
ASSESSMENT COMPLETE. PATIENT RESTING QUIETLY IN BED. ALERT AND ORIENTED X3. VSS. C/O 5 ON SCALE 0-10 BUT DECLINES PAIN MEDICATION AT THIS TIME; REPOSITIONED FOR COMFORT. COLOSTOMY NOTED TO LEFT ABDOMEN, STOMA BEEFY. MIDLINE INCISION, DRESSING CLEAN/DRY/INTACT; ABDOMINAL DRESSING APPLIED. WIGGINS TO GRAVITY, PATENT. SCD'S APPLIED. NO DISTRESS NOTED AT THIS TIME. CALL LIGHT WITHIN REACH.
--- NOTE | 2021-10-04 23:43 | NUR ---
PATIENT RESTING QUIETLY. MIDNIGHT MEDS GIVEN PER ORDER. PATIENT DENIES ANY CONCERNS AT THIS TIME.
[2021-10-05] VITALS (22 sets, daily range): BP systolic 80–125; BP diastolic 40–66
--- NOTE | 2021-10-05 01:54 | NUR ---
PATIENT AWAKE IN BED WATCHING TV. VERBALIZES THAT PAIN IS ABOUT A 4 ON SCALE 0-10 AND IS TOLERABLE. PROVIDED PATIENT WITH ORAL SWABS TO MOISTEN MOUTH. NO DISTRESS NOTED AT THIS TIME. URINE NOTED TO BE GREEN IN COLOR, WILL CONTINUE TO MONITOR.
--- NOTE | 2021-10-05 03:00 | NUR ---
FLAGYL ADMINISTERED PER ORDER. BLADDER SCAN PERFORMED, RESULT 0ML. PATIENT RECEIVING 150ML/HR IVF, ONLY 100ML OF URINE OUT SINCE 1899. PATIENT DENIES DISCOMFORT, NO DISTENTION NOTED ON PALPATION. PATIENT REPOSITIONED AT THIS TIME. WILL CONTINUE TO MONITOR.
--- NOTE | 2021-10-05 04:49 | NUR ---
CALL OUT TO DR. ACOSTA FOR LOW BLOOD PRESSURE AND LOW URINE OUTPUT. ORDERS RECEIVED FOR NORMAL SALINE BOLUS AND LACTIC ACID. ALSO CALL SURGEON FOR POSSIBLE ORDERS FOR SCANS.
--- NOTE | 2021-10-05 04:55 | NUR ---
INFUSING OF LACTATED RINGERS PAUSED, NORMAL SALINE BOLUS BEGAN. PATIENT RESTING IN BED.
--- NOTE | 2021-10-05 05:33 | NUR ---
CALLED DR. CARPENTER PER DR. ACOSTA ORDERS REGARDING POSSIBLE SCANS R/T LOW URINE OUTPUT. NO ORDERS RECEIVED FROM DR. CARPENTER AT THIS TIME.
--- NOTE | 2021-10-05 06:21 | NUR ---
NS BOLUS COMPLETE, BP IMPROVED TO 96/50. PATIENT C/O ABDOMINAL PAIN 4, IV TORADOL GIVEN PER SCHEDULED TIME.
[2021-10-05 06:42] LABS: HEMATOCRIT 27.6 % (37.0-47.0); HEMOGLOBIN 8.4 g/dl (12.0-16.0); MEAN CELL VOLUME 92.3 fL CALC (80.0-100.0); MEAN CORPUSCULAR HGB 28.1 pG CALC (26.0-32.0); MEAN CORPUSCULAR HGB CONC 30.4 g/dL CAL (32.0-36.0); RED BLOOD COUNT 2.99 mill/uL (4.20-5.60); RED CELL DISTRI WIDTH 14.6 % (11.5-15.5)
--- NOTE | 2021-10-05 07:00 | NUR ---
REPORT RECEIVED FROM RAMON RUSSELL. PT SITTING SEMI-FOWLERS. VSS. PT DENIES PAIN AT THIS TIME. CALL LIGHT WITHIN REACH. INSTRUCTED PT TO CALL FOR ASSISTANCE, VERBALIZES UNDERSTANDING.
[2021-10-05 07:04] LABS: BUN 16 mg/dL (8-23); BUN/CREATININE RATIO 19 (12-20 (CALC)); CARBON DIOXIDE 25 mmol/l (22-30); CHLORIDE 107 mmol/l (95-108); CREATININE 0.9 mg/dL (0.5-1.0); GFR 59 ML/MIN (>=60 (CALC)); GFR FOR AFR.AMER. > 60 ML/MIN (>=60 (CALC)); MAGNESIUM 2.4 mg/dL (1.6-2.3); SODIUM 134 mmol/l (137-146)
[2021-10-05 07:05] LABS: ANION GAP 7 (6-22 (CALC)); POTASSIUM 4.7 mmol/l (3.5-5.1)
--- NOTE | 2021-10-05 08:51 | NUR ---
PT GIVEN PAIN MEDICATION FOR 8/10 ABDOMINAL PAIN. BP IS 99/56. PT INSTRUCTED TO CALL FOR ASSISTANCE, STATES UNDERSTANDING. WILL MONITOR CLOSELY.
--- NOTE | 2021-10-05 13:15 | NUR ---
PT REPOSITIONED, C/O PAIN. APPREHENSIVE TO GET OOB AND REPOSITION, R/T PT BEING HYPOTENSIVE. WILL NOTIFY MD OF LOW OUTPUT
--- NOTE | 2021-10-05 14:33 | NUR ---
DR. RUIZ AT BS. EXPLAINING POC AND SURGICAL PROCEDURE TO PATIENT, WILL AWAIT FURTHER ORDERS TO POC
--- NOTE | 2021-10-05 16:27 | NUR ---
BOTH SURGEON AND MD AWARE OF PT'S LOW URINE OUTPUT. PT VSS AFTER NS 1 L BOLUS. PT C/O PAIN. WILL GIVE PAIN MEDICATIONS AT THIS TIME.
--- NOTE | 2021-10-05 18:22 | NUR ---
PT GIVEN TORADOL, STATES DILAUDID GAVE RELIEF, PAIN IS 5/10. GAVE TORADOL AT THIS TIME. DENIES ANY FURTHER NEEDS. VSS. CALL LIGHT WITHIN REACH. INSTRUCTED PT TO CALL FOR ASSISTANCE, VERBALIZES UNDERSTANDING.
--- NOTE | 2021-10-05 18:40 | NUR ---
ALESHA RECEIVED FROM CHRYSTAL NAVARRO
--- NOTE | 2021-10-05 20:57 | NUR ---
ASSESSMENT COMPLETE. PATIENT RESTING IN BED WATCHING TV. STATES PAIN IS TOLERABLE. BOWEL SOUNDS HYPOACTIVE, STOMA BEEFY. WIGGINS TO GRAVITY, PATENT. NO CONCERNS EXPRESSED AT THIS TIME. CALL LIGHT WITHIN REACH.
[2021-10-06] VITALS (13 sets, daily range): BP systolic 99–138; BP diastolic 47–69
--- NOTE | 2021-10-06 00:43 | NUR ---
MIDNIGHT MEDS ADMINISTERED. PATIENT RESTING QUIETLY. MOUTHCARE PROVIDED AND ICE CHIPS GIVEN. PATIENT STABLE NO DISTRESS NOTED.
[2021-10-06 05:40] LABS: HEMATOCRIT 25.7 % (37.0-47.0); HEMOGLOBIN 7.7 g/dl (12.0-16.0); IMMATURE GRANULOCYTES 0.2 % (0.0-5.0); MEAN CELL VOLUME 93.5 fL CALC (80.0-100.0); NEUT# 9.41 thou/uL (2.00-7.15); RED BLOOD COUNT 2.75 mill/uL (4.20-5.60); RED CELL DISTRI WIDTH 14.5 % (11.5-15.5)
[2021-10-06 05:57] LABS: ANION GAP 5 (6-22 (CALC)); BUN 21 mg/dL (8-23); BUN/CREATININE RATIO 25 (12-20 (CALC)); CARBON DIOXIDE 26 mmol/l (22-30); CHLORIDE 108 mmol/l (95-108); CREATININE 0.8 mg/dL (0.5-1.0); GFR > 60 ML/MIN (>=60 (CALC)); GFR FOR AFR.AMER. > 60 ML/MIN (>=60 (CALC)); MAGNESIUM 2.7 mg/dL (1.6-2.3); POTASSIUM 4.8 mmol/l (3.5-5.1); SODIUM 134 mmol/l (137-146)
--- NOTE | 2021-10-06 06:00 | NUR ---
PATIENT QUIETLY WATCHING TV. MORNING MEDS GIVEN WITH SMALL SIP OF WATER, TOLERATED WELL. TORADOL GIVEN FOR PAIN. NO CONCERNS EXPRESSED AT THIS TIME, CALL LIGHT WITHIN REACH.
--- NOTE | 2021-10-06 08:15 | NUR ---
DR MARTIN IN ROUNDING ON PT.
--- NOTE | 2021-10-06 08:34 | NUR ---
SITTING UP IN RECLINER WITH 1 PERSON ASSIST.
--- NOTE | 2021-10-06 09:02 | NUR ---
TRANSFER ORDERS RECIEVED AWAITING BED ASSIGNMENT.
--- NOTE | 2021-10-06 09:06 | NUR ---
PT DAUGHTER MEKA CALLED FOR UPDATE ON CONDITION.
--- NOTE | 2021-10-06 09:50 | NUR ---
DR CARPENTER IN ROUNDING ON PT.
--- NOTE | 2021-10-06 12:30 | NUR ---
SCHEDULED TORADOL GIVEN.
--- NOTE | 2021-10-06 14:24 | NUR ---
RESTING IN BED CHEST RISING AND FALLING. NO S/S OF DISTRESS NOTED.
--- NOTE | 2021-10-06 14:38 | NUR ---
TELPHONE REPORT GIVEN TO RECEIVING RN PT TO GO TO ROOM 280.
--- NOTE | 2021-10-06 15:00 | NUR ---
PT RECEIVED FROM ICU AT THIS TIME VIA WHEELCHAIR FROM THE ICU, ACCOMPANIED BY JAMIL NAVARRO. PT IS ALERT AND ORIENTED X 3. LUNGS CLEAR, RA. WIGGINS IN PLACE. ABDOMINAL BINDER IN PLACE. PT ASSISTED INTO BED, BINDER RELEASED FOR NOW. PT DENIES NEED FOR PAIN MED AT THIS TIME, BUT IS AWARE OF THEIR AVAILABILITY. COLOSTOMY BAG WITH APPROX 30 ML BROWNISH WATER. MINIMAL OUTPUT IN WIGGINS.
--- NOTE | 2021-10-06 15:12 | NUR ---
TRANSPORT OFF UNIT VIA WHEELCHAIR SAFELY.
--- NOTE | 2021-10-06 19:00 | NUR ---
REPORT RECEIVED FROM Ivone LANCASTER RN
--- NOTE | 2021-10-06 19:30 | NUR ---
PATIENT ALERT AND ORIENTED X3. SHAKIRA LUNG SOUNDS DIMMINSHED AT BASES. NORMAL HEART SOUNDS. PT ON TELEMETRY. MIDLIINE DRESSING TO INCICION CDI. ABDOMINLA BINDER RELEASED FOR COMFORT. NO CURRENT COMPLAINTS OF PAIN. LACTATED RINGERS INFUSING AT 150ML/HR. 3 LUMEN TO LEFT SUBCLAVIAN. SMALL BROWN WATERY BOWEL NOTED TO COLOSTOMY. CARE OF PLAN REVIEWED WITH PATIENT. CALL LIGHT AND BEDSIDE TABLE WIHTIN REACH
[2021-10-07] VITALS (7 sets, daily range): BP systolic 91–137; BP diastolic 53–67
--- NOTE | 2021-10-07 00:31 | NUR ---
ANTIBIOTIC HUNG AT THIS TIME. PT VOICES NO CONCERNS/COMPLAINTS A THIS TIME. CALL LIGHT AND BEDSIDE TABLE WITHIN REACH.
--- NOTE | 2021-10-07 04:53 | NUR ---
WRITTER IN TO DRAW MORNING LABS AT THIS TIME, PT TOLERATED WELL. CALL LIGHT AND BEDSIDE TABLE WTIHIN REACH. PT VOICES NO COMPLAINTS.
--- NOTE | 2021-10-07 05:07 | NUR ---
PT TOTAL OUTPUT FOR TONIGHT 270ML. FLUIDS RUNNING AT 150 THROUGHT NIGHT.
[2021-10-07 05:48] LABS: HEMATOCRIT 26.1 % (37.0-47.0); HEMOGLOBIN 8.1 g/dl (12.0-16.0); IMMATURE GRANULOCYTES 0.3 % (0.0-5.0); MEAN CELL VOLUME 90.3 fL CALC (80.0-100.0); NEUT# 10.23 thou/uL (2.00-7.15); RED BLOOD COUNT 2.89 mill/uL (4.20-5.60); RED CELL DISTRI WIDTH 14.3 % (11.5-15.5)
[2021-10-07 05:53] LABS: ANION GAP 7 (6-22 (CALC)); BUN 24 mg/dL (8-23); BUN/CREATININE RATIO 26 (12-20 (CALC)); CARBON DIOXIDE 26 mmol/l (22-30); CHLORIDE 102 mmol/l (95-108); CREATININE 0.9 mg/dL (0.5-1.0); GFR 59 ML/MIN (>=60 (CALC)); GFR FOR AFR.AMER. > 60 ML/MIN (>=60 (CALC)); MAGNESIUM 2.9 mg/dL (1.6-2.3); POTASSIUM 5.2 mmol/l (3.5-5.1); SODIUM 130 mmol/l (137-146)
--- NOTE | 2021-10-07 07:00 | NUR ---
REPORT RECEIVED FROM RAMON PANDYA. PT AWAKE ALERT AND APPROPRIATE. VSS. CALL LIGHT WITHIN REACH. INSTRUCTED PT TO CALL FOR ASSISTANCE, VERBALIZES UNDERSTANDING.
--- NOTE | 2021-10-07 11:47 | NUR ---
PT GIVEN TYLENOL, MIDODRINE AND LASIX AT THIS TIME. VSS. EDUCATED OF INDICATION FOR MIDODRINE, STATES UNDERSTANDING. PT HAS PAIN 04/30. WILL GIVE TYLENOL AT THIS TIME R/T LOW BP, AND THE NEED TO GIVE LASIX FOR FLUID OVERLOAD. WILL RE-EVALUATE PAIN LEVEL AND BP AND GIVE DILAUDID IF PAIN LEVEL NOT AT GOAL.
--- NOTE | 2021-10-07 13:00 | NUR ---
PT PAIN LEVEL STILL NOT AT TARGET GOAL. BP IS WNL. WILL GIVE DILAUDID FOR PAIN. WILL CONTINUE TO MONITOR CLOSELY.
--- NOTE | 2021-10-07 13:02 | NUR ---
PT GIVEN DILAUDID FOR EXTREME ABDOMINAL PAIN. BP IS STABLE. WILL CONTINUE TO MONITOR CLOSELY.
--- NOTE | 2021-10-07 14:00 | NUR ---
PT COMPLIANT AND ABLE TO WORK WITH PHYSICAL THERAPY. ABLE TO SIT AT SIDE OF BED, AND STAND. REQUIRES ONE PERSON STANDBY ASSISTANCE.
--- NOTE | 2021-10-07 16:00 | NUR ---
PT RESTING WITH EYES CLOSE. STATES RELIEF FROM PAIN MEDICATION. PT HAS HAD LARGE AMOUNT OF URINE OUTPUT CHARTED IN I&O'S. CALL LIGHT WITHIN REACH. INSTRUCTED PT TO CALL FOR ASSISTANCE, VERBALIZES UNDERSTANDING.
--- NOTE | 2021-10-07 20:16 | NUR ---
PT IS SITTING IN HIGH FOWLERS POSITION IN THE BED WATCHING TV. ASSESSMENT COMPLETED AT THIS TIME. PT C/O KENDALL HOSE/ REMOVED AT THIS TIME FOR COMFORT AND SCD'S REPLACED ON. INCIS DRESSING MIDLINE APPEARS CDI AT THIS TIME AND COLOSTOMY TO LLQ HAS GOOD PLACEMENT AND DOES NOT NEED BURPED AT THIS TIME, SMALL AMOUNT OF BROWN SOFT/LOOSE STOOL W/IN COLOSTOMY BAG. EDUCATION DISCUSSED ON ITS CARE, WILL REINFORCE NEEDED. CALL LIGHT IS AT SIDE ON BST AND PT ENCOURAGED TO CALL NEEDS ARISE.
--- NOTE | 2021-10-07 20:39 | NUR ---
PT MEDICATED ORDERS PROVIDE. PT REPORTS VERY SMALL AMOUNT OF PAIN IN MID UPPER ABD, BUT DENIES NEED FOR PAIN MEDICATION AT THIS TIME WHEN OFFERED. I DID ADVISE HER TO LET ME KNOW IF HER PAIN INCREASES, SHE VERBALIZED UNDERSTANDING. CALL LIGHT IS W/IN REACH.
--- NOTE | 2021-10-08 00:20 | NUR ---
PT MEDICATED ORDERS PROVIDE FOR ANTIBIOTIC THERAPY. PT IS SLEEPING, DID NOT AWAKE TO MY ENTERING THE ROOM. RESP EVEN AND NON-LABORED.
--- NOTE | 2021-10-08 02:15 | NUR ---
PT SLEEPING AT THIS TIME. RESP/BREATHS EVEN AND NON-LABORED
[2021-10-08 03:36] VITALS: BP 119/71
--- NOTE | 2021-10-08 05:31 | NUR ---
PT MEDICATED W/MORNING MEDICATION PER ORDERS AND BLOOD DRAWN FOR MORNING LABS. PT WAS GRUNTING LIGHTLY WHEN I ENTERED THE ROOM, IN LOW FOWLERS IN THE BED WITH TV AND LIGHTS OFF. I ASKED IF SHE WAS IN PAIN, SOUNDING LIKE PAINFUL GRUNTING, SHE REPLIED "A LITTLE" I OFFERED MEDICATION FOR PAIN OR OTHER COMFORT MEASURES TO HELP HER FEEL MORE COMFORTABLE, DENIED.
[2021-10-08 06:19] LABS: HEMATOCRIT 28.7 % (37.0-47.0); HEMOGLOBIN 8.8 g/dl (12.0-16.0); MEAN CELL VOLUME 89.1 fL CALC (80.0-100.0); MEAN CORPUSCULAR HGB 27.3 pG CALC (26.0-32.0); MEAN CORPUSCULAR HGB CONC 30.7 g/dL CAL (32.0-36.0); RED BLOOD COUNT 3.22 mill/uL (4.20-5.60); RED CELL DISTRI WIDTH 14.3 % (11.5-15.5)
[2021-10-08 06:26] LABS: ANION GAP 6 (6-22 (CALC)); BUN 28 mg/dL (8-23); BUN/CREATININE RATIO 33 (12-20 (CALC)); CARBON DIOXIDE 28 mmol/l (22-30); CHLORIDE 99 mmol/l (95-108); CREATININE 0.8 mg/dL (0.5-1.0); GFR > 60 ML/MIN (>=60 (CALC)); GFR FOR AFR.AMER. > 60 ML/MIN (>=60 (CALC)); MAGNESIUM 2.5 mg/dL (1.6-2.3); POTASSIUM 5.1 mmol/l (3.5-5.1); SODIUM 127 mmol/l (137-146)
[2021-10-08 06:30] VITALS: BP 120/72
--- NOTE | 2021-10-08 06:30 | NUR ---
PT CALLED TO REPORT HAVING EPIGASTRIC PAIN, MEDICATED FOR PAIN, NAUSEA AND EPIGASTRIC PAIN. PT IS GRASPING HER CHEST BREATHING HEAVILY. SHE DENIED NEED FOR EKG, BUT FINALLY AGREED. RESP NOTIFIED.
--- NOTE | 2021-10-08 06:40 | NUR ---
RESP IN WITH PT AT THIS TIME.
[2021-10-08 06:52] VITALS: BP 115/69
--- NOTE | 2021-10-08 07:10 | NUR ---
NEW ORDERS RECEIVED FOR STAT TROPONIN, LAB DRAWN FROM LINE AND SENT TO THE LAB.
--- NOTE | 2021-10-08 08:11 | NUR ---
DR. RADER NOTIFIED OF PT'S CRITICAL TROPONIN. NO CHANGE TO POC. PT IS RESTING WITH EYES CLOSED. PT DOES NOT APPEAR TO BE IN ANYTYPE OF DISTRESS. WILL CONTINUE TO MONITOR CLOSELY.
[2021-10-08 10:53] VITALS: BP 133/69
--- NOTE | 2021-10-08 11:07 | NUR ---
TROPONIN LAB OBTAINED AT THIS TIME. SENT DOWN. PT DENIES PAIN, SOB, OR DISCOMFORT. TELEMTERY PLACED ON PT AND IS NRS. CALL LIGHT WITHIN REACH. INSTRUCTED PT TO CALL FOR ASSISTANCE, VERBALIZES UNDERSTANDING.
--- NOTE | 2021-10-08 11:50 | NUR ---
NANCY MARINELLI NOTIFIED OF CRITICAL TROPONIN.
--- NOTE | 2021-10-08 15:49 | NUR ---
PT SITTING IN CHAIR, STATES I FEEL SO MUCH BETTER GETTING OOB AND TO THE CHAIR. CALL LIGHT WITHIN REACH. INSTRUCTED PT TO CALL FOR ASSISTANCE, VERBALIZES UNDERSTANDING.
[2021-10-08 15:53] VITALS: BP 122/58
--- NOTE | 2021-10-08 16:27 | NUR ---
Subjective: Patient states that she is feeling a little better today, less dizzy. Objective: Patient participated with the following activity: Seated B LE exercises: hip flexion, hip abduction, knee extension, hamstring curls, hip adduction, and ankle pumps for 10 reps x 2 sets with verbal and tactile cuing. BEd mobility and bed to chair transfers with mod A x1 (2 reps) with constant verbal and tactile cuing. Assessment: Patient exhibiting increased participation with bed mobility and transfer ADLs secondary to improving muscle strength and endurance. Plan: Patient to continue with PT intervention to concentrate on strengthening exercises, dynamic balance, transfers, and gait ADLs to help patient get back to near prior level of function. Am Pac score of 10 points, discharge recommendation will be extended care facility placement and I agree with this recommendation.
[2021-10-08 19:40] VITALS: BP 131/74
--- NOTE | 2021-10-08 20:17 | NUR ---
PT MEDICATED FOR PAIN 8/10 ON PAIN SCALE. PT REPORTS EVERYTIME SHE TRIES TO EAT SHE HAS THIS PAIN IN MIDSTERNAL CENTER OF LOWER CHEST.
--- NOTE | 2021-10-08 20:20 | NUR ---
PHYSICIAN NOTIFIED OF TROPONIN LEVEL.
--- NOTE | 2021-10-08 23:58 | NUR ---
pt medicated w/iv antibiotic therapy. pt awakened to my entering the room. she reports being very comfortable at this time, states "it's only when I try to eat that I have pain" I did encourage her to call me if she has any further needs or concerns, verbalized understanding.
[2021-10-09 00:02] VITALS: BP 153/74
--- NOTE | 2021-10-09 01:40 | NUR ---
PT APPEARS TO BE SLEEPING, NO S/O DISTRESS NOTED. BREATHS ARE EVEN AND NON-LABORED.
[2021-10-09 04:04] VITALS: BP 143/68
--- NOTE | 2021-10-09 05:22 | NUR ---
PT MEDICATED ORDERS PROVIDE AND FOR ACID REFLUX. 550CC OF DARK TEA COLORED URINE EMPTIED FROM WIGGINS CATHETER BAG, DRAINING TO GRAVITY.
--- NOTE | 2021-10-09 05:37 | NUR ---
PT WEIGHT OBTAINED VIA BEDSCALE, REMOVED SCD PUMP PRIOR TO WEIGHT MEASURED OF 73.3KG
[2021-10-09 06:18] LABS: HEMATOCRIT 26.4 % (37.0-47.0); HEMOGLOBIN 8.2 g/dl (12.0-16.0); MEAN CELL VOLUME 88.9 fL CALC (80.0-100.0); MEAN CORPUSCULAR HGB 27.6 pG CALC (26.0-32.0); MEAN CORPUSCULAR HGB CONC 31.1 g/dL CAL (32.0-36.0); RED BLOOD COUNT 2.97 mill/uL (4.20-5.60); RED CELL DISTRI WIDTH 14.4 % (11.5-15.5)
[2021-10-09 06:25] LABS: ALKALINE PHOSPHATASE 97 u/l (38-126); BILIRUBIN, TOTAL 0.5 mg/dL (0.0-1.4); BUN 31 mg/dL (8-23); BUN/CREATININE RATIO 42 (12-20 (CALC)); CARBON DIOXIDE 28 mmol/l (22-30); CHLORIDE 99 mmol/l (95-108); CREATININE 0.8 mg/dL (0.5-1.0); GFR > 60 ML/MIN (>=60 (CALC)); GFR FOR AFR.AMER. > 60 ML/MIN (>=60 (CALC)); SGOT/AST 38 u/l (9-36); SODIUM 128 mmol/l (137-146)
[2021-10-09 06:32] LABS: ALBUMIN 1.7 g/dL (3.2-5.0); ANION GAP 6 (6-22 (CALC)); POTASSIUM 5.2 mmol/l (3.5-5.1); TOTAL PROTEIN 3.8 g/dL (6.3-8.2)
[2021-10-09 07:31] VITALS: BP 131/71
--- NOTE | 2021-10-09 07:33 | NUR ---
REPORT RECEIVED FROM RAMON FLORES. PT AWAKA AND ALERT. REPORTS TO BE FEELING "MUCH BETTER" EAGER TO GET OOB FOR BREAKFAST, TECH AVAILABLE TO ASSIST WITH ADL. VSS. INSTRUCTED PT TO CALL FOR ASSISTANCE, VERBALIZES UNDERSTANDING.
[2021-10-09 10:56] VITALS: BP 127/68
[2021-10-09 15:41] VITALS: BP 130/71
--- NOTE | 2021-10-09 16:23 | NUR ---
PT RESTING IN BED WITH VISITOR AT BS. VSS, DENIES PAIN SOB OR DISCOMFORT. CALL LIGHT WITHIN REACH. INSTRUCTED PT TO CALL FOR ASSISTANCE, VERBALIZES UNDERSTANDING.
[2021-10-09 19:25] VITALS: BP 134/67
--- NOTE | 2021-10-09 20:35 | NUR ---
PT MEDICATED ORDERS PROVIDE AND ASSESSMENT COMPLETED. DRESSING TO ABD APPEARS SOILED/REMOVED AND DRESSING CHANGED AT THIS TIME. ABD PADS W/TAPE PUT BACK IN PLACE. COLOSTOMY BAG HAS A MINIMAL AMOUNT OF GAS OUTPUT W/MINIMAL AMOUNT OF BROWN LOOSE STOOL.
--- NOTE | 2021-10-09 21:13 | NUR ---
PT MEDICATED FOR PAIN 7/10 ON PAIN SCALE.
--- NOTE | 2021-10-09 23:35 | NUR ---
ANTIBIOTIC THERAPY ADMINISTERED AT THIS TIME AND V/S ASSESSED, PT HR ELEVATED AT 112, PT IS ON TELEMETRY FOR CLOSE MONITORING
[2021-10-10] VITALS (7 sets, daily range): BP systolic 86–124; BP diastolic 51–62
--- NOTE | 2021-10-10 06:08 | NUR ---
PT MEDICATED FOR PAIN 6/10 ON PAIN SCALE REPORTED THROUGHOUT ENTIRE ABD ALL QUADS. DRESSING TO INCISION CDI AT THIS TIME AND COLOSTOMY INTACT.
--- NOTE | 2021-10-10 07:00 | NUR ---
SHIFT CHANGE REPORT, PT AWAKE ALERT AND ORIENTED RESTING IN BED, NO C/O PAIN AT THIS TIME, O2 @ 2L VIA NC IN PLACE, TELE MONITOR IN PLACE, CALL REY IN REACH AND BED LOCKED IN LOWEST POSITION.
[2021-10-10 10:06] LABS: HEMOGLOBIN 9.8 g/dl (12.0-16.0); IMMATURE GRANULOCYTES 0.7 % (0.0-5.0); MEAN CELL VOLUME 88.6 fL CALC (80.0-100.0); MEAN CORPUSCULAR HGB 27.1 pG CALC (26.0-32.0); MEAN CORPUSCULAR HGB CONC 30.6 g/dL CAL (32.0-36.0); NEUT# 12.33 thou/uL (2.00-7.15); RED BLOOD COUNT 3.61 mill/uL (4.20-5.60); RED CELL DISTRI WIDTH 14.3 % (11.5-15.5)
[2021-10-10 10:45] LABS: ANION GAP 9 (6-22 (CALC)); BUN 28 mg/dL (8-23); BUN/CREATININE RATIO 53 (12-20 (CALC)); CARBON DIOXIDE 26 mmol/l (22-30); CHLORIDE 99 mmol/l (95-108); CREATININE 0.5 mg/dL (0.5-1.0); GFR > 60 ML/MIN (>=60 (CALC)); GFR FOR AFR.AMER. > 60 ML/MIN (>=60 (CALC)); MAGNESIUM 2.1 mg/dL (1.6-2.3); SODIUM 129 mmol/l (137-146)
--- NOTE | 2021-10-10 12:00 | NUR ---
SITTING UP IN RECLINER TRYING TO HAVE MEAL, REPORTS SHE IS UNABLE TO TOLERATE REGULAR SOLID FOODS, OFFERED FULL LIQUIDS BUT REPORTED SOUP TOO SALTY, SURGEON NOTIFIED OF CONDITION NOT TOLERATING REGULAR AND OK TO CHANGE TO FULL LIQUIDS
--- NOTE | 2021-10-10 12:10 | NUR ---
S- Pt stated she was going to go to rehab. 0- Pt seen this am for treatment. She performed supine ex 2 x 10 reps including heel slide, hip ABD/ADD, hip IR/ER and ankle DF/PF. She required mod assist to move supine to sitting, sitting on edge of bed with SBA. Transfers required mod assist x1. Gait with RW 1x 12' with CGA/ min assist. Pt unable to walk a second time due to fatique/LE weakness. Pts BP 112/62 after walking 76/50, with rest 93/69 in sittitng, she did c/o slight dizziness and nursing notified of othostatic changes. Time spent with pt 45 min 0- weakness post op. [facility] p- will follow per POC
--- NOTE | 2021-10-10 14:56 | NUR ---
TELE REPORTED HR IN 130'S-150'S, NOTIFIED, EKG ORDERED AND SHOWED A-FIB, DIGOXIN IV ORDERED AND GIVEN, HR = 130 APICALLY, PT IS SITTING UP IN BED AT THIS TIME, VISITOR IN ROOM, WILL CONTINUE TO MONITOR.
--- NOTE | 2021-10-10 21:15 | NUR ---
PATIENT SITTING UP IN HIGH FOWLERS POSITION WATCHING TV. AWAKE ALERT AND ORIENTEDX3 WITH O2 VIA NASAL CANNULA IN PLACE AT 2LPM. O2 SATS 96%. TELE MONITOR IN PLACE-LAST READING WAS AFIB-107. COLOSTOMY APPLIANCE INTACT TO LEFT ABD WITH SCANT AMT OF LIQUID GREENISH FLUID. ABD DRESSING CDI AT THIS TIME. IVF LR PATENT AND INFUSING AT 30CC/HR VIA LEFT UPPER CHEST IV SITE. SITE IS HEALTHY AT THIS TIME. WIGGINS PATENT AND DRAINING MIKHAIL URINE. PATIENT C/O EPIGASTRIC/ABD PAIN-MEDICATED WITH PERCOCET 5/325MG PO AND WITH SIMETHICONE GTTS. PATIENT STATES THAT SHE ALWAYS GETS PAIN AFTER EATING. BUE SWELLING NOTED-PATIENT STATES THAT THIS JUST STARTED. SAFETY PRECAUTIONS REINFORCED. CALL LIGHT IN REACH. WILL CONT TO MONITOR.
--- NOTE | 2021-10-10 23:44 | NUR ---
PATIENT RESTING IN BED WITH O2 VIA NASAL CANNULA IN PLACE. EYE ARE CLOSED AND RESPS ARE EVEN AND UNLABORED. WIGGINS IS PATENT AND DRAINING MIKHAIL URINE. TELE MONITOR IN PLACE. IVF PATENT AND INFUSING AT 30CC/HR VIA LEFT UPPER CHEST SITE. CALL LIGHT IN REACH. WILL CONT TO MONITOR.
[2021-10-11] VITALS: BP 113/68
--- NOTE | 2021-10-11 00:20 | NUR ---
PATIENT RESTING IN BED AND VS TAKEN. C/O OF SEVERE ABD CRAMPING. TOO EARLY FOR PAIN MEDS AT THIS TIME. JANIA HEARD ORDERED. CALL LIGHT IN REACH. WILL CONT TO MONITOR.
--- NOTE | 2021-10-11 03:55 | NUR ---
PATIENT RESTING IN BED WITH EYES CLOSED. O2 VIA NASAL CANNULA IN PLACE. IVF PATENT AND INFUSING VIA LEFT UPPER CHEST AT 30CC/HR. WIGGINS PATENT AND DRAINING MIKHAIL URINE. TELE MONITOR IN PLACE. CALL LIGHT IN REACH. WILL CONT TO MONITOR.
--- NOTE | 2021-10-11 04:26 | NUR ---
PATIENT RESTING IN BED AT THIS TIME-AWAKE ALERT AND ORIENTEDX3. O2 VIA NASAL CANNULA IN PLACE. WIGGINS PATENT AND DRAINING MIKHAIL URINE. TELE MONITOR IN PLACE WITH LAST READING BEING AFIB 107. LAB WORK DRAWN FOR LEFT UPPER CHEST TRIPLE LUMEN CATH-BROWN PORT WITH GOOD BLOOD RETURN-FLUSHED PER PROTOCOL.IVF NS PATENT AND INFUSING AT 30CC/HR. SAFETY PRECAUTIONS REINFORCED. CALL LIGHT IN REACH. WILL CONT TO MONITOR.
[2021-10-11 04:35] VITALS: BP 123/76
[2021-10-11 05:17] LABS: HEMATOCRIT 27.9 % (37.0-47.0); HEMOGLOBIN 8.9 g/dl (12.0-16.0); MEAN CELL VOLUME 86.1 fL CALC (80.0-100.0); MEAN CORPUSCULAR HGB 27.5 pG CALC (26.0-32.0); MEAN CORPUSCULAR HGB CONC 31.9 g/dL CAL (32.0-36.0); RED BLOOD COUNT 3.24 mill/uL (4.20-5.60); RED CELL DISTRI WIDTH 14.2 % (11.5-15.5)
[2021-10-11 05:37] LABS: ANION GAP 6 (6-22 (CALC)); BUN 27 mg/dL (8-23); BUN/CREATININE RATIO 47 (12-20 (CALC)); CARBON DIOXIDE 29 mmol/l (22-30); CHLORIDE 99 mmol/l (95-108); CREATININE 0.6 mg/dL (0.5-1.0); GFR > 60 ML/MIN (>=60 (CALC)); GFR FOR AFR.AMER. > 60 ML/MIN (>=60 (CALC)); POTASSIUM 4.6 mmol/l (3.5-5.1); SODIUM 129 mmol/l (137-146)
--- NOTE | 2021-10-11 06:24 | NUR ---
PATIENT RESTING IN BED-C/O FEELING LIKE SHE IS LEAKING AROUND HER CATH-PATIENT TURNED AND REPOSITIONED AND PAD IS DRY. PATIENT DID JUST RECIEVE LASIX 20MG IVP. WIGGINS IS PATENT AND DRAINING MIKHAIL URINE. PATIENT WITH GENERALIZED EDEMA HER ENTIRE BODY. IVF PATENT AND INFUSING LEFT UPPER CHEST TLC AT 30CC/HR. TELE MONITOR IN PLACE-. ENCOURAGED MORE ACTIVITY IF POSSIBLE. SAFETY PRECAUTIONS REINFORCED. MEDICATED FOR ABD PAIN WITH PERCOCET FOR 8/10 ON PAIN SCALE. CALL LIGHT IN REACH. WILL CONT TO MONITOR.
--- NOTE | 2021-10-11 06:40 | NUR ---
RECIEVED CALL FROM ER JANITOR CUSTODIAN THAT PATIENT NOW A-FIB 138. PATIENT MEDICATED WITH DIG 0.15MG ORDERED FOR HR>120. CALLED FOR UPDATE AND HARRIET STATES THAT HER RATE CURRENTLY IS A-FIB 124. WILL CONT TO MONITOR.
[2021-10-11 07:43] VITALS: BP 95/54
--- NOTE | 2021-10-11 08:06 | NUR ---
SHIFT CHANGE REPORT, PT AWAKE ALERT AND ORIENTED IN HIGH FOWLERS POSITION IN BED, DENIES PAIN AT THIS TIME BUT C/O FULLNESS TO EPIGASTRIC AREA, O2 @ 3L VIA NC IN PLACE, TELE MONITOR IN PLACE, WIGGINS CATHETER IN PLACE WITH MIKHAIL URINE, CALL REY IN REACH AND BED LOCKED IN LOWEST POSITIOIN.
--- NOTE | 2021-10-11 10:40 | NUR ---
S- pt reported sleeping well. She denied dizziness. 0- contacted nursing prior to treatment. She was OOB in chair with legs elevated. Initial BP 91/60, 02 sats 95 unable to get HR and telemetry called by nurse with HR 120 to 140. Pt performed sitting LE ex x 20 reps each. mobility not performed. Her post ex BP was 82/53, nurse was notified and pt continued to deny any dizziness/light headness. Pt left in chair with legs elevated, call multani in reach and try in front of her. A- Pt with decrease strength and mobility [facility] P- will follow and progress activity as tolerated.
[2021-10-11 11:15] LABS: URINE BILIRUBIN - DIPSTICK NEGATIVE (NEGATIVE); URINE BLOOD DIPSTICK SMALL (NEGATIVE); URINE COLOR YELLOW; URINE GLUCOSE - DIPSTICK NEGATIVE (NEGATIVE); URINE KETONE 40 mg/dL (NEGATIVE); URINE LEUK ESTERASE NEGATIVE (NEGATIVE); URINE PROTEIN - DIPSTICK NEGATIVE (NEG-TRACE); URINE SPECIFIC GRAVITY 1.015; URINE UROBILINOGEN - DIPSTICK 0.2 E.U./dL (0.2)
[2021-10-11 11:20] LABS: URINE EPITHELIAL CELLS FEW EPI/hpf (0-FEW); URINE NITRITE - DIPSTICK NEGATIVE (Negative)
[2021-10-11 11:30] VITALS: BP 98/66
--- NOTE | 2021-10-11 12:06 | NUR ---
SITTING UP IN RECLINER, BEING PREPARED FOR ABD CT, CONVERSING WITH VISITOR AT THIS TIME, INFORMED OF NEW TESTS ORDERED AND STATES UNDERSTANDING.
--- NOTE | 2021-10-11 12:39 | NUR ---
WRECKER OPERATOR PERFORMING PROCEDURE AT THIS TIME, LAST DOSE OF GASTROGRAFFIN DELAYED A RESULT.
--- NOTE | 2021-10-11 15:07 | NUR ---
INFRMD OF PROCEDURE, TRANSPORTED OFF UNIT VIA BED BY MED SURG STAFF TO CT.
[2021-10-11 19:00] VITALS: BP 97/57
--- NOTE | 2021-10-11 20:00 | NUR ---
PATIENT SITTING UP IN THE BED AT THIS TIME WITH O2 VIA NASAL CANNULA IN PLACE. AWAKE ALERT AND ORIENTEDX3. STATES SOME RELIEF FROM PERCOCET GIVEN ON DAYSHIFT. TELE MONITOR IN PLACE SHOWING 113 AT THIS TIME. WIGGINS PATENT AND DRAINING MIKHAIL URINE. IVF LR PATENT AND INFUSING VIA LEFT UPPER CHEST TLC AT 30CC/HR. SITE IS HEALTHY AT THIS TIME. ENCOURAGED USE OF THE IS Q1H WHILE AWAKE AND ALSO DEEP BREATHING EXERCISES. LUNGS ARE CLEAR AT THIS ITME. OSTOMY APPLIANCE TO LEFT ABD INTACT WITH SMALL AMT OF LIQUID BROWN FLUID IN THE BAG. ABD DRESSING CDI AT THIS TIME. PATIENT CONT TO HAVE GENERALIZED EDEMA TO HER ENTIRE BODY. PATIENT IS ON LASIX 20IVP BID. ENCOURAGED PATIENT TO TRY TO INCREASE HER ACTIVITY BUT STATES THAT SHE WAS UP AND OOB FOR TESTING TODAY AND SHE IS TIRED. SAFETY PRECAUTIONS REINFORCED. CALL LIGHT IN REACH. WILL CONT TO MONITOR.
[2021-10-12] VITALS: BP 90/47
[2021-10-12 04:00] VITALS: BP 97/62
--- NOTE | 2021-10-12 04:56 | NUR ---
PATIENT SITTING UP IN BED WITH O2 VIA NASAL CANNULA IN PLACE. AWAKE ALERT AND ORIENTED AT THIS TIME. LAB WORK DRAWN FROM BROWN PORT TLC WITH GOOD BLOOD RETURN. FLUSH WITH SALINE PER PROTOCOL. IVF LR PATENT AND INFUSING AT 30CC/HR, WIGGINS PATENT AND DRAINING SMALL AMT OF MIKHAIL URINE. TELE MONITOR IN PLACE-LAST READING WAS AFIB 114. O2 VIA NASAL CANNULA AT 3LPM IN PLACE. SAFETY PRECAUTIONS REINFORCED. CALL LIGHT IN REACH. WILL CONT TO MONITOR.
[2021-10-12 05:38] LABS: HEMATOCRIT 28.3 % (37.0-47.0); MEAN CELL VOLUME 85.5 fL CALC (80.0-100.0); MEAN CORPUSCULAR HGB 27.2 pG CALC (26.0-32.0); MEAN CORPUSCULAR HGB CONC 31.8 g/dL CAL (32.0-36.0); RED BLOOD COUNT 3.31 mill/uL (4.20-5.60); RED CELL DISTRI WIDTH 14.3 % (11.5-15.5)
[2021-10-12 05:50] LABS: ANION GAP 4 (6-22 (CALC)); BUN 25 mg/dL (8-23); BUN/CREATININE RATIO 45 (12-20 (CALC)); CARBON DIOXIDE 32 mmol/l (22-30); CHLORIDE 98 mmol/l (95-108); CREATININE 0.6 mg/dL (0.5-1.0); GFR > 60 ML/MIN (>=60 (CALC)); GFR FOR AFR.AMER. > 60 ML/MIN (>=60 (CALC)); POTASSIUM 4.6 mmol/l (3.5-5.1); SODIUM 129 mmol/l (137-146)
--- NOTE | 2021-10-12 06:15 | NUR ---
RECIEVED CALL FROM HARRIET IN ER-PATIENT WITH AFIB 130'S. PATIENT WITH SEVERE ABD CRAMPING AND WAS JUST MEDICATED WITH PERCOCET FOR PAIN. PATIENT WAS THEN MEDICATED WITH DIG 0.15MG IVP FOR AFIB RVR VIA LEFT TLC. 0630-JUST SPOKE WITH HARRITE AGAIN AND RATE IS NOW DOWN TO AFIB 118-120. WILL CONT TO MONITOR.
--- NOTE | 2021-10-12 08:09 | NUR ---
DR CARPENTER AT BEDSIDE DISCUSSING POC
[2021-10-12 08:44] VITALS: BP 143/64; BP 94/56
--- NOTE | 2021-10-12 08:44 | NUR ---
PT SLEEPING IN BED. AWAKENED TO COMPLETE ASSESSMENT. PT A&O X3. NO DISTRESS NOTED. PT DENIES ANY PAIN AT THIS TIME. CLEAR/DIMINISHED BREATH SOUNDS UPON AUSCULTATION. O2 VIA NC @3L IN PLACE. HYPOACTIVE BOWEL SOUNDS X4 QUADRANTS; CURRENTLY NPO FOR DIAGNOSTIC TESTING. COLOSTOMY INTACT. DRESSING CDI. LT SUBCLAVIAN TRIPLE LUMEN HEALTHY AND PATENT; ALL LUMENS FLUSH WITH EASE BUT ONLY ABLE TO OBTAIN BLOOD FROM BROWN LUMEN AT THIS TIME. GENERALIZED EDEMA NOTED. ASSESSMENT COMPLETED. DISCUSSED POC. CALL LIGHT WITHIN REACH.
--- NOTE | 2021-10-12 09:40 | NUR ---
pt currently down in US guided paracentesis.
--- NOTE | 2021-10-12 10:04 | NUR ---
Pt out of room to US.
[2021-10-12 10:30] VITALS: BP 94/52
--- NOTE | 2021-10-12 10:39 | NUR ---
DNR FORM SIGNED BY PATIENT AND MD. DNR PLACED IN CHART.
--- NOTE | 2021-10-12 12:10 | NUR ---
PT SLEEPING IN BED. NO DISTRESS NOTED. CALL LIGHT WITHIN REACH.
--- NOTE | 2021-10-12 13:10 | NUR ---
DR KERNS CONSULT IN PROGRESS
--- NOTE | 2021-10-12 14:13 | NUR ---
Treatment held per nursing request.
--- NOTE | 2021-10-12 14:41 | NUR ---
S: SIMONE TOLLIVER is a 86 F who presents with sigmoid colectomy and end-colostomy. She has a history of Leukocytosis. All medications in patient's chart were reviewed. O: VS: BP <94/52>, P<99>, RR<18>,T<97.1> W 75kg>, HT67 in, Scr= ,CrCl= <90ml/min> A: Blood culture negative P: Patient is on fluconazole and meropenem. Vancomycin ordered for pharmacy to dose. Start Vancomycin 750mg IV Q12H. Vancomycin trough is drawn before the 4th dose on 10/13/210. Vancomycin goal trough is between <15-20 mcg/ml>. Pharmacy will follow and or advise on antibiotics use as needed.
[2021-10-12 15:00] VITALS: BP 107/69
--- NOTE | 2021-10-12 15:25 | NUR ---
PT C/O OF PAIN 03/31. MEDICATED WITH PRN MEDICATION. NO OTHER NEEDS AT THIS TIME. CALL LIGHT WITHIN REACH.
[2021-10-12 20:00] VITALS: BP 112/67
--- NOTE | 2021-10-12 21:42 | NUR ---
PT MEDICATED ORDERS PROVIDE. SHE WAS SLEEPING I ENTERED THE ROOM, BUT AWOKE AT MY VOICE. NO S/O DISTRESS NOTED.
[2021-10-13] VITALS: BP 115/69
--- NOTE | 2021-10-13 00:11 | NUR ---
PT MEDICATED WITH IV ANTIBIOTIC THERAPY. PT HAD SPILLED WATER ON HER GOWN AND WAS UNAWARE. GOWN AND BEDDING CHANGED AT THIS TIME. COLOSTOMY STILL APPEARS CLEAN AND W/OUT ANY OUTPUT AT THIS TIME WITH SEAL INTACT. STOMA APPEARS BEEFY. DRESSING TO MIDLINE CDI AT THIS TIME ALSO.
[2021-10-13 04:00] VITALS: BP 106/68
[2021-10-13 05:10] LABS: HEMATOCRIT 26.9 % (37.0-47.0); HEMOGLOBIN 8.5 g/dl (12.0-16.0); IMMATURE GRANULOCYTES 1.1 % (0.0-5.0); MEAN CELL VOLUME 85.4 fL CALC (80.0-100.0); MEAN CORPUSCULAR HGB CONC 31.6 g/dL CAL (32.0-36.0); NEUT# 14.12 thou/uL (2.00-7.15); RED BLOOD COUNT 3.15 mill/uL (4.20-5.60); RED CELL DISTRI WIDTH 14.5 % (11.5-15.5)
--- NOTE | 2021-10-13 05:17 | NUR ---
PT AWAKE, MEDICATED ORDERS PROVIDE. PROVIDED COMFORT MEASURES REQUESTED. CALL LIGHT AT SIDE.
[2021-10-13 05:23] LABS: ALBUMIN 1.5 g/dL (3.2-5.0); ALKALINE PHOSPHATASE 99 u/l (38-126); ANION GAP 4 (6-22 (CALC)); BILIRUBIN, TOTAL 0.3 mg/dL (0.0-1.4); BUN 24 mg/dL (8-23); BUN/CREATININE RATIO 41 (12-20 (CALC)); CARBON DIOXIDE 33 mmol/l (22-30); CHLORIDE 97 mmol/l (95-108); CREATININE 0.6 mg/dL (0.5-1.0); GFR > 60 ML/MIN (>=60 (CALC)); GFR FOR AFR.AMER. > 60 ML/MIN (>=60 (CALC)); POTASSIUM 4.3 mmol/l (3.5-5.1); SGOT/AST 43 u/l (9-36); SODIUM 130 mmol/l (137-146); TOTAL PROTEIN 3.7 g/dL (6.3-8.2)
--- NOTE | 2021-10-13 06:35 | NUR ---
PT TAKEN DOWN FOR KUB IN RADIOLOGY VIA WC ACCOMPANIED BY BLADE PAUL.
[2021-10-13 08:03] VITALS: BP 90/58
--- NOTE | 2021-10-13 08:15 | NUR ---
PATIENT SITTING IN RECLINER. ASSESSMENT DONE. PATIENT STATED PAIN IN ABD. MEDICATED PATIENT WITH OXYCODONE. O2 AT 3L VIA NC. TELE IN PLACE. ABD DRERSSING CDI. COLOSTOMY BAG IN PLACE WITH NO BM AT THIS TIME. PATIENT DENIES ANY OTHER NEEDS AT THIS TIME. SAFETY PRECAUTIONS REINFORCED AND CALL LIGHT IN REACH.
--- NOTE | 2021-10-13 10:56 | NUR ---
Attempt treatment this am but pt wanting to wait until later today.
[2021-10-13 11:01] VITALS: BP 98/61
--- NOTE | 2021-10-13 12:35 | NUR ---
PICTURE TAKEN OF BUTTOCKS THAT HAS REDNESS AND BRUISE. AQUACEL APPLIED TO BUTTOCKS. FOUNTAIN MANAGER IN ROOM TO BATH PATIENT. CALL LIGHT IN REACH.
--- NOTE | 2021-10-13 13:54 | NUR ---
S- Pt reported feeling ok. She has been resting in bed since before lunch. 0- Pt seen for therapy this am. She was resting in bed. BP 91/55, HR 94, 02 sat 100%. Bed mobility required mod assist to roll over, max assist to move supine to and from sitting. Sitting ex performed 10 reps each after standing x 2 reps. Pt BP in sitting 92/53, after 1st stand 74/52 and second stand 61/52. She was returned to supine. Pt denied being lightheaded or dizzy. Pt stood with min assist from bed and stood with RW x 1-2 min. HR 104 to 117, 02 sats 94% post treatment. Pt wanted to remain in bed. She was left with call multani/phone and bedside tray in reach. Pt son in to visit. Time spent with pt 40 min. Nursing notified of BP A- [facility] P- Will follow. A-
[2021-10-13 14:50] VITALS: BP 104/56
--- NOTE | 2021-10-13 16:30 | NUR ---
PATIENT IS RESTING IN BED WITH NO DISTRESS NOTED. PATIENT DENIES NEEDS. WIGGINS IS PATENT WITH YELLOW URINE. CALL LIGHT IN REACH.
[2021-10-13 19:00] VITALS: BP 94/64
--- NOTE | 2021-10-13 20:26 | NUR ---
REPORT FROM SETH OSBORNE. ASSUMED PT CARE.
--- NOTE | 2021-10-13 20:55 | NUR ---
PT NOTED SITTING UP IN BED WATCHING TV. ALERT AND ORIENTED X3. NO APPARENT DISTRESS NOTED. RESPIRATIONS EVEN AND UNLABORED. TRIPLE LUMEN CENTRAL LINE TO LEFT SUBCLAVIAN, CDI. IVF INFUSING WITHOUT DIFFICULTY. WELLNESS RN IN PLACE. GENERALIZED EDEMA NOTED. COLOSTOMY NOTED TO LLQ WITH SCANT AMOUNT OF STOOL NOTED IN BAG. PRUNE JUICE PROVIDED AT THIS TIME. PT DENIES ANY PAIN OR DISCOMFORT. NO CURRENT WANTS OR NEEDS. CALL LIGHT WITHIN REACH. WILL CONTINUE TO MONITOR.
--- NOTE | 2021-10-13 21:30 | NUR ---
VANCO TROUGH OBTAINED FROM CENTRAL LINE PER PROTOCOL. PT TOLERATED WELL.
[2021-10-14] VITALS (7 sets, daily range): BP systolic 92–121; BP diastolic 57–78
--- NOTE | 2021-10-14 00:41 | NUR ---
PT MEDICATED FOR ABD PAIN 7/10. ACTIVE BOWEL SOUNDS NOTED IN BILATERAL UPPER QUADRANTS, SCANT AMOUNT OF BROWN STOOL NOTED IN COLOSTOMY BAG. PT REPOSITIONED FOR COMFORT. GENERALIZED EDEMA REMAINS UNCHANGED. WIGGINS PATENT DRAINING TO GRAVITY. CALL LIGHT WITHIN REACH. WILL CONTINUE TO MONITOR.
--- NOTE | 2021-10-14 04:30 | NUR ---
PT RESTING IN BED WITH EYES CLOSED. NO APPARENT DISTRESS NOTED. RESPIRATIONS EVEN AND UNLABORED. WIGGINS REMAINS PATENT DRAINING TO GRAVITY. FITNESS/WELLNESS DIRECTOR IN PLACE. CALL LIGHT WITHIN REACH. WILL CONTINUE TO MONITOR.
[2021-10-14 05:10] LABS: HEMOGLOBIN 8.2 g/dl (12.0-16.0); MEAN CELL VOLUME 84.7 fL CALC (80.0-100.0); MEAN CORPUSCULAR HGB 27.8 pG CALC (26.0-32.0); MEAN CORPUSCULAR HGB CONC 32.8 g/dL CAL (32.0-36.0); RED BLOOD COUNT 2.95 mill/uL (4.20-5.60); RED CELL DISTRI WIDTH 14.9 % (11.5-15.5)
[2021-10-14 05:26] LABS: ANION GAP 4 (6-22 (CALC)); BUN 24 mg/dL (8-23); BUN/CREATININE RATIO 40 (12-20 (CALC)); CARBON DIOXIDE 33 mmol/l (22-30); CHLORIDE 97 mmol/l (95-108); CREATININE 0.6 mg/dL (0.5-1.0); GFR > 60 ML/MIN (>=60 (CALC)); GFR FOR AFR.AMER. > 60 ML/MIN (>=60 (CALC)); POTASSIUM 4.5 mmol/l (3.5-5.1); SODIUM 130 mmol/l (137-146)
--- NOTE | 2021-10-14 08:11 | NUR ---
PT SITTING IN BED ATTEMPTING TO EAT BREAKFAST. A&O X3. PT DENIES ANY PAIN AT THIS TIME AND REPORTS FEELING "GOOD". CLEAR BREATH SOUNDS UPON AUSCULTATION. O2 VIA NC @3L IN PLACE. HYPOACTIVE BOWEL SOUNDS X4 QUADRANTS, COLOSTOMY IN PLACE WITH BROWN PASTY STOOL FORMING. GENERALIZED EDEMA +2. WIGGINS CATHTER IN PLACE WITH YELLOW URINE NOTED. LT TLC IN PLACE; WITH ONE LUMEN INFUSING IVF PER ORDER. OTHERS FLUSH WITH EASE. PT ENCOURAGED TO GET OOB TODAY INTO THE CHAIR. PT AGREEABLE; PT TO HELP THIS CAMPUS AMBASSADOR TO DO SO. ASSESSMENT COMPLETED. DISCUSSED POC. CALL LIGHT WITHIN REACH.
--- NOTE | 2021-10-14 09:28 | NUR ---
DR JHAVERI AND Ivone BROTHERS APRN AT BEDSIDE DISCUSSING POC
--- NOTE | 2021-10-14 09:42 | NUR ---
DR CARPENTER AT BEDSIDE DISCUSSING POC
--- NOTE | 2021-10-14 11:25 | NUR ---
PT SITTING IN BED ATTEMPTING TO EAT LUNCH. VISITOR AT BEDSIDE .PHYSICAL THERAPY ALSO AT BEDSIDE. PT SAT UP IN CHAIR; EXERTED WITH ACTIVITY BUT RECOVERED QUICKLY AND TOLERATED WELL. LEGS ELEVATED. PT ALSO EDUCATED ON DRINKING MAG CITRATE; PT AGREEABLE. TOLERATING WELL WITH WATER. NO OTHER NEEDS AT THIS TIME. ABX INITIATED. CALL LIGHT WITHIN REACH.
--- NOTE | 2021-10-14 13:04 | NUR ---
PT REMAINS UP IN THE CHAIR; NO DISTRESS OR NEEDS AT THIS TIME. CALL LIGHT WITHIN REACH.
--- NOTE | 2021-10-14 13:39 | NUR ---
PT SITTING IN CHAIR, SON AT BEDSIDE. IV TUBING CHANGED AT THIS TIME. SECOND BAG OF FLUCONAZOLE INITIATED AT THIS TIME. PT TOLERATING MAG CITRATE WELL. NO OTHER NEEDS AT THIS TIME. CALL LIGHT WITHIN REACH.
--- NOTE | 2021-10-14 13:40 | NUR ---
Subjective: Patient states that she is feeling a little better today and is ready to get in the chair. Objective: Patient did the following: Seated B LE AAROM exercises doing hip flexion, hip adduction and abduction, hamstring curls, seated knee extension, and and ankle pumps for 10 to 15 reps with constant verbal and tactile cuing. Patient also did log rolling bed mobility and sit to stand transfers for 1 to 2 reps with max A x 1. Patient did gait training covering 5 steps from bed to chair with max A x 1 with increased slouching posture. Assessment: Patient with slight increase in muscle strength as exhibited by patient carrying out bed mobility, transfer, and gait ADLs with max A x 1, previously almost dependent and very fatigued. Plan: Patient to continue with PT intervention to help improve functional weight bearing ADL capability, tolerance, and stability, decrease trick movements and fall risks. Am Pac score today is 11 points, discharge recommendation is extended care facility placement.
--- NOTE | 2021-10-14 19:30 | NUR ---
RESTING IN BED. PATIENT RESTLESS AND ANXIOUS. EMOTIONAL SUPPORT AND REASSURANCE PROVIDED. RESPONDS TO VERBAL CUES. RESP LABORED. O2 ON AT 4 L NC. O2 SAT 91-94% BREATH SOUNDS DIMINISHED THROUGHOUT. FREQ MOIST COUGH. IV IN RFA, SITE BENIGN, NS INFUSINGAT 100 ML/HR. NAVAL AIRCREWMAN MECHANICAL SHOWS SR. DISCUSSED PLAN OF CARE. CALL REY IN REACH. CALLED RT FOR NEB RX.
--- NOTE | 2021-10-14 19:50 | NUR ---
PATIENT C/O SOB. PLACED ON BIPAP BY RT.
--- NOTE | 2021-10-14 20:01 | NUR ---
PATIENT SITTING UP IN BED AT THIS TIME-O2 VIA NASAL CANNULA IN PLACE WITH O2 SAT OF 96%. AWAKE ALERT AND ORIENTEDX3. TELE MONITOR IN PLACE-LAST READING AFIB LOW 100'S. WIGGINS PATENT AND DRAINING MIKHAIL URINE. COLOSTOMY APPLIANCE TO LEFT ABD IS INTACT. PATIENT IS TAKING CITRATE OF MAG SLOWLY ORDERED, CONT TO HAVE GENERALIZED EDEMA-2+. IVF LR PATENT AND INFUSING VIA LEFT CHEST TLC AT 30CC/HR. AQUACEL FOAM DRESSING TO BUTTOCKS IN PLACE. SAFETY PRECAUTIONS REINFORCED. CALL LIGHT IN REACH. WILL CONT TO MONITOR.
--- NOTE | 2021-10-14 21:34 | NUR ---
PATIENT RESTING IN BED-ENCOURAGED PATIENT TO FINISH THE CITRATE OF MAG. SMALL AMT OF LOOSE BROWN STOOL NOTED TO LEFT COLOSTOMY. ABD DRESSING IS CDI. BOWEL SOUNDS PRESENT. MEDICATED FOR POST-OP PAIN WITH PERCOCET. IVF PATENT AND INFUSING VIA LEFT CHEST TLC. ALL PORTS WERE FLUSHED WITH NS. WIGGINS PATENT AND DRAINING MIKHAIL URINE. TELE IN PLACE. SAFETY PRECAUTIONS REINFORCED. CALL LIGHT IN REACH. WILL CONT TO MONITOR.
--- NOTE | 2021-10-14 22:00 | NUR ---
VSS. RESTING QUIETLY.
--- NOTE | 2021-10-14 23:52 | NUR ---
PATIENT RESTING IN BED AT THIS TIME WITH HOB ELEVATED AND O2 VIA NASAL CANNULA IN PLACE. MERRUM HUNG AND INFUSING ORDERED VIA LEFT UPPER CHEST TLC. CALL LIGHT IN REACH. WILL CONT TO MONITOR.
[2021-10-15 03:50] VITALS: BP 102/68
--- NOTE | 2021-10-15 04:53 | NUR ---
PATIENT RESTING IN BED AT THIS TIME WITH O2 VIA NASAL CANNULA IN PLACE-O2 SAT IS 98% AT THIS TIME. TELE MONITOR IN PLACE WITH LAST READING AFIB 91. LAB WORK DRAWN FROM LEFT TLC WITH GOOD BLOOD RETURN. FLUSH WITH NS PER PROTOCOL. OSTOMY DRAINED FOR 150CC OF LOOSE BROWN STOOL. OSTOMY CARE COMPLETED WITH APPLIANCE INTACT. PATIENT C/O ABD CRAMPING AND MEDICATED WITH PERCOCET 5/325MG PO. WIGGINS PATENT AND DRAINING MIKHAIL URINE. IVF LR PATENT AND INFUSING AT 30CC/HR. PATIENT ASSISTED WITH ORAL HYGEINE-PROVIDED WITH TOOTHBRUSH AND TOOTHPASTE. CALL LIGHT IN REACH. WILL CONT TO MONITOR.
[2021-10-15 04:57] LABS: HEMATOCRIT 25.3 % (37.0-47.0); HEMOGLOBIN 8.2 g/dl (12.0-16.0); MEAN CELL VOLUME 84.9 fL CALC (80.0-100.0); MEAN CORPUSCULAR HGB 27.5 pG CALC (26.0-32.0); MEAN CORPUSCULAR HGB CONC 32.4 g/dL CAL (32.0-36.0); RED BLOOD COUNT 2.98 mill/uL (4.20-5.60); RED CELL DISTRI WIDTH 14.8 % (11.5-15.5)
[2021-10-15 05:19] LABS: ANION GAP 2 (6-22 (CALC)); BUN 23 mg/dL (8-23); BUN/CREATININE RATIO 43 (12-20 (CALC)); CARBON DIOXIDE 34 mmol/l (22-30); CHLORIDE 97 mmol/l (95-108); CREATININE 0.5 mg/dL (0.5-1.0); GFR > 60 ML/MIN (>=60 (CALC)); GFR FOR AFR.AMER. > 60 ML/MIN (>=60 (CALC)); MAGNESIUM 2.3 mg/dL (1.6-2.3); POTASSIUM 4.3 mmol/l (3.5-5.1); SODIUM 129 mmol/l (137-146)
[2021-10-15 08:00] VITALS: BP 100/60
--- NOTE | 2021-10-15 08:00 | NUR ---
PT SITTING SEMI SORENSEN IN BED. COLOSTOMY BAG STARTED OVERFLOWING. CLEAN AND CHANGED WITH CROP OR LIVESTOCK TENANT FARMER FAIZAN. FECES WERE LOOSE BUT NOT WATERY, BROWN COLORED. PT STATED NO PAIN DURING CHANGING. PT ALSO HAS AFIB ABOVE 120, ADMINISTERED DIGOXIN.
--- NOTE | 2021-10-15 10:00 | NUR ---
ASSESSMENT ALLOWED AT THIS TIME. LUNG SOUNDS DIMINISHED UPPER/LOWER LOBES. BOWEL SOUNDS HEARD X4, AFIB HAS GONE DPWN BELOW 120. HEART SOUNDS IRREGULAR. STATES NO PAIN. PT HAS LEFT SUBCLAVIAN TRIPLE LUMEN. FLUSHED WITH NO RESISTANCE. LR INFUSING PER EMAR ORDER. STATES NO PAIN AT THIS TIME. CALL LIGHT WTIHIN REACH.
[2021-10-15 10:30] VITALS: BP 106/72
[2021-10-15 15:00] VITALS: BP 99/65
--- NOTE | 2021-10-15 16:00 | NUR ---
PT ASLEEP IN BED. COLOSTOMY BAG IN PLACE CONTAINING A LITTLE FECAL MATTER. REPORTS NO PAIN AT THIS TIME. FLUIDS D/C. TELE MONITOR IN PLACE SHOWING AFIB 110. CONTINOUS MONITORING BY ED. CALL LIGHT WITHIN REACH
[2021-10-15 19:00] VITALS: BP 87/52
--- NOTE | 2021-10-15 19:35 | NUR ---
REPORT RECEIVED FROM Flor Fuentes
--- NOTE | 2021-10-15 20:03 | NUR ---
[facility] TELEMETRY NUMBER [id number], WITH ALFRED MARQUIS
--- NOTE | 2021-10-15 21:35 | NUR ---
PATIENT ALERTS AND ORIENTED X3. DIMMIHSIED LUNG SOUNDS. TELEMETRY ON PT ([id number]) CURRENTLY RUNNING A FIBB 89. HYPOTENSIVE BOWEL SOUNDS., NO NEW STOOL IN OSTOMY BAG, GAS RELEASED AT THIS TIME. MIDLINE DRESSING CDI, REMOVED TO INSPECT SJ, SLIGHT SEPARATION NOTED AT 4TH STAPLE DOWN, MD AWARE. WIGGINS DRAINING CLEAR YELLOW URINE TO GRAVITY. CARE OF PLAN REVIWED WITH PATIENT, CALL LIGHT AND BEDSIDE TABLE WITHIN REACH.
[2021-10-16] VITALS: BP 93/56
--- NOTE | 2021-10-16 00:15 | NUR ---
PATIENT STATES HER "LEG FEELS WET" UPON INSPECTION WRITTER FOUND RIGHT LG TO BE WEEPING, PT STATES THIS HAPPENS FROM TIEM TO TIME. ARUN PLACED UNDER LEG FOR COMOFORT. CALL LIGHT AND BEDSIDE TABLE WITHIN REACH.
--- NOTE | 2021-10-16 03:51 | NUR ---
PATIENT COMPLAINING OF PAIN, PT MEDICATED PER EMAR. SEE EMAR.
[2021-10-16 04:00] VITALS: BP 83/52
[2021-10-16 05:25] LABS: HEMATOCRIT 26.3 % (37.0-47.0); HEMOGLOBIN 8.2 g/dl (12.0-16.0); MEAN CELL VOLUME 86.8 fL CALC (80.0-100.0); MEAN CORPUSCULAR HGB 27.1 pG CALC (26.0-32.0); MEAN CORPUSCULAR HGB CONC 31.2 g/dL CAL (32.0-36.0); RED BLOOD COUNT 3.03 mill/uL (4.20-5.60); RED CELL DISTRI WIDTH 14.8 % (11.5-15.5)
[2021-10-16 05:39] LABS: ANION GAP 4 (6-22 (CALC)); BUN 20 mg/dL (8-23); BUN/CREATININE RATIO 32 (12-20 (CALC)); CARBON DIOXIDE 32 mmol/l (22-30); CHLORIDE 96 mmol/l (95-108); CREATININE 0.6 mg/dL (0.5-1.0); GFR > 60 ML/MIN (>=60 (CALC)); GFR FOR AFR.AMER. > 60 ML/MIN (>=60 (CALC)); MAGNESIUM 2.1 mg/dL (1.6-2.3); POTASSIUM 4.1 mmol/l (3.5-5.1); SODIUM 128 mmol/l (137-146)
[2021-10-16 09:40] VITALS: BP 89/54
--- NOTE | 2021-10-16 09:42 | NUR ---
PT SITTING ON RECLINER UPON ENTERING ROOM. STATES NO PAIN AT THIS TIME. COLOSTOMY BAG IS IN PLACE WITH BROWN BM INSIDE. TELE MONITOR IN PLACE WITH CONTINOUS MONITORING BY ED. ASSESSMENT AND VITALS ALLOWED AT THIS TIME MELISSA SOUNDS CLEAR R&L UPPER LOBES, DIMINISHED ON R&LLL POSTERIOR AND ANTERIOR. HEART SOUNDS IIREGULAR. BOWEL SOUNDS HEAR X4. FALL PRECAUTIONS IN PLACE. LEFT SUBCLAVIAN TRIPLE LUMEN FLUSHED WITH NO RESISTANCE. ONLY ABLE TO GET BLOOD RETURN ON THE BLUE LUMEN. CALLLIGHT AND PERSONAL ITEMS ARE WITHIN REACH.
[2021-10-16 11:33] VITALS: BP 85/58
--- NOTE | 2021-10-16 12:08 | NUR ---
PT SITTING DOWN ON RECLINER. COLOSTOMY INTACT. SKIN AROUND AREA INTACT. TELE MONITOR IN PLACE. STATES NO PAIN AT THIS TIME. WIGGINS IN PLACE DRAINING URINE VIA GRAVITY SHOWING MIKHAIL URINE. LS TRIPLE LUMEN PATENT. STATES NO OTHER NEEDS AT THIS TIME. CALL LIGHT WITHIN REACH
--- NOTE | 2021-10-16 16:00 | NUR ---
PT READING BOOK UPON ENTERING ROOM. IV PATENT, SALINE LOCK. FLUSHED WITH NO RESISTANCE ON ALL THREE LUMENS. TELE MONITOR IN PLACE SHOWING AFIB 110, CONTINOUS MONITORING BY ED. FALL PRECAUTIONS IN PLACE. STATES NO PAIN AT THIS TIME. CALL LIGHT WITHIN REACH.
[2021-10-16 16:09] VITALS: BP 90/59
[2021-10-16 19:13] VITALS: BP 125/60
--- NOTE | 2021-10-16 19:20 | NUR ---
REPORT FROM NYDIA NAVARRO. ASSUMED PT CARE.
--- NOTE | 2021-10-16 19:33 | NUR ---
PT NOTED SITTING UP IN BED. ALERT AND ORIENTED X3. NO APPARENT DISTRESS NOTED. PT C/O ABD PAIN 8/10. BOWEL SOUNDS PRESENT IN ALL 4 QUADRANTS. COLOSTOMY BAG NOTED WITH SMALL AMOUNT OF BROWN LOOSE STOOL, PT ACTIVELY PASSING GAS. MEDICATED WITH PRN PERCOCET. PRUNE JUICE PROVIDED UPON REQUEST. SJ PRESENT TO MIDLINE INCISION, KENYATTA. GENERALIZED EDEMA NOTED. WIGGINS PATENT DRAINING TO GRAVITY. TRIPLE LUMEN NOTED TO LEFT SUBCLAVIAN, ALL LUMENS FLUSHED PER PROTOCOL. PT DENIES ANY OTHER CURRENT WANTS OR NEEDS. CALL LIGHT WITHIN REACH. WILL CONTINUE TO MONITOR.
--- NOTE | 2021-10-16 23:49 | NUR ---
PT RESTING IN BED WITH EYES CLOSED. NO APPARENT DISTRESS NOTED. RESPIRATIONS EVEN AND UNLABORED. PT CONTINUE WITH O2 @ 3L/M VIA ROSALIE SMILEY PATENT DRAINING TO GRAVITY. CALL LIGHT WITHIN REACH. WILL CONTINUE TO MONITOR.
[2021-10-17 00:32] VITALS: BP 156/72
[2021-10-17 04:39] VITALS: BP 112/67
--- NOTE | 2021-10-17 04:47 | NUR ---
LABS OBTAINED FROM TRIPLE LUMEN LEFT SUBCLAVIAN PER PROTOCOL. PT TOLERATED WELL.
[2021-10-17 05:38] LABS: HEMATOCRIT 25.4 % (37.0-47.0); HEMOGLOBIN 7.9 g/dl (12.0-16.0); MEAN CELL VOLUME 86.7 fL CALC (80.0-100.0); MEAN CORPUSCULAR HGB CONC 31.1 g/dL CAL (32.0-36.0); RED BLOOD COUNT 2.93 mill/uL (4.20-5.60); RED CELL DISTRI WIDTH 15.2 % (11.5-15.5)
[2021-10-17 06:17] LABS: ANION GAP 3 (6-22 (CALC)); BUN 20 mg/dL (8-23); BUN/CREATININE RATIO 31 (12-20 (CALC)); CARBON DIOXIDE 34 mmol/l (22-30); CHLORIDE 96 mmol/l (95-108); CREATININE 0.7 mg/dL (0.5-1.0); GFR > 60 ML/MIN (>=60 (CALC)); GFR FOR AFR.AMER. > 60 ML/MIN (>=60 (CALC)); POTASSIUM 4.1 mmol/l (3.5-5.1); SODIUM 129 mmol/l (137-146)
--- NOTE | 2021-10-17 06:40 | NUR ---
GLUCOSE ON MORNING LABS RESULTS 76. PT ASYMPTOMATIC. JUICE PROVIDED AT THIS TIME. PT REQUEST COFFEE ON BREAKFAST TRAY, DIETARY NOTIFIED.
[2021-10-17 08:47] VITALS: BP 101/79
--- NOTE | 2021-10-17 08:47 | NUR ---
pt sitting in bed. a&o x3. no distress noted. o2 via nc @3l in place. clear breath sounds upon auscultation. active bowel sounds x4 quadrants. colostomy burped, small amount of loose bm noted. +2 edema generalized . LT TLC healthy and patent; flushed well. teletypesetter monitor in place. assessment completed. discussed poc. call light within reach.
--- NOTE | 2021-10-17 09:22 | NUR ---
NURSE NOTIFIED FROM ER AND SAW THE STRIP AND ADRYAN MARINELLI NOTIFIED AND SEEN STRIP SENT UP BY FARIDA NAVARRO FROM ER.
--- NOTE | 2021-10-17 10:18 | NUR ---
DR JHAVERI AND Ivone BROTHERS APRN AT BEDSIDE DISCUSSING POC
--- NOTE | 2021-10-17 10:53 | NUR ---
S- pt reported feeling better, she did c/o pain with moving supine to sit. 0- Pt resting in bed with nursing passing meds. She performed supine ex including heel slides, hip abd/add, hip IR/ER, SAQ and ankle DF/PF. Rolling required mod assist, mod assist with scooting hips in supine and max assist to move supine to sit for upper body. Sitting on edge of bed static balance F+ Sit to and from stand with CGA/min assist x 1. Pt was able to walk 8 steps with CGA using RW. She stood a second time from recliner using RW but requesting to sit due to increase in lightheadedness. BP 101/70, after walking 86/50, returned to 98/55 with rest, after second stand 91/59, HR 112 to 130 after treatment 119, 02 sats upper 90's. Time spent with pt 50 min 0- [facility] P- will follow.
[2021-10-17 11:03] VITALS: BP 127/72
[2021-10-17] MEDS ORDERED: METRONIDAZOLE500 MG PO (12:15)
[2021-10-17] MEDS ORDERED: FLUCONAZOLE200 MG PO (12:15)
[2021-10-17] MEDS ORDERED: PANTOPRAZOLE SO40 M1 PO (12:15)
[2021-10-17] MEDS ORDERED: LOPRESSOR25 MG PO (12:15)
[2021-10-17] MEDS ORDERED: CIPROFLOXACN500 MG PO (12:15)
[2021-10-17] MEDS ORDERED: FUROSEMIDE20 MG PO (12:15)
[2021-10-17] MEDS ORDERED: ELIQUIS2.5 MG PO (12:15)
[2021-10-17] MEDS ORDERED: LORTAB 5/3255 MG PO (12:19)
--- NOTE | 2021-10-17 12:50 | NUR ---
pt sitting in chair eating lunch. no needs at this time. call light within reach.
--- NOTE | 2021-10-17 16:21 | NUR ---
Discharge instructions given. Patient verbalizes understanding of same. Discharged in stable condition via Medical Transport to [facility] accompanied by staff. All belongings sent with pt. Britt intact upon removal. central line intact upon removal, biopatch applied to site.
--- NOTE | 2021-10-17 16:48 | NUR ---
report given to rehab
== END 2021-10-17 16:21 | DRG 330 ==
LOC: ED 16:57 → ED-I 20:30 → ED 20:56 → MS2 20:57 → ICU 10-04 16:45 → MS2 10-04 16:45 → ICU 10-04 16:46 → MS2 10-06 14:58
PROVIDERS: Family Medicine; Hospitalist; Nurse Practitioner; Nurse Practitioner Family; Surgery; ADMIT Internal Medicine; ATTEND Internal Medicine
PROC: 0DBN0ZZ Excision of Sigmoid Colon, Open Approach (ICD-10-PCS; principal; 2021-10-04)
PROC: 0DB80ZZ Excision of Small Intestine, Open Approach (ICD-10-PCS; 2021-10-04)
PROC: 0D1M0Z4 Bypass Descending Colon to Cutaneous, Open Approach (ICD-10-PCS; 2021-10-04)
PROC: 0DB80ZZ Excision of Small Intestine, Open Approach (ICD-10-PCS; 2021-10-04)
PROC: 0DNE0ZZ Release Large Intestine, Open Approach (ICD-10-PCS; 2021-10-04)
PROC: 0DN80ZZ Release Small Intestine, Open Approach (ICD-10-PCS; 2021-10-04)
PROC: 02HV33Z Insertion of Infusion Device into Superior Vena Cava, Percutaneous Approach (ICD-10-PCS; 2021-10-04)
PROC: 0W9G3ZZ Drainage of Peritoneal Cavity, Percutaneous Approach (ICD-10-PCS; 2021-10-12)
DX: C18.7 Malignant neoplasm of sigmoid colon (principal); K56.699 Other intestinal obstruction unspecified as to partial versus complete obstruction; N17.9 Acute kidney failure, unspecified; J81.1 Chronic pulmonary edema; E87.1 Hypo-osmolality and hyponatremia; K56.7 Ileus, unspecified; R18.8 Other ascites; N13.4 Hydroureter; N13.30 Unspecified hydronephrosis; I24.8 Other forms of acute ischemic heart disease; C79.89 Secondary malignant neoplasm of other specified sites; I10 Essential (primary) hypertension; E03.9 Hypothyroidism, unspecified; E21.3 Hyperparathyroidism, unspecified; I95.9 Hypotension, unspecified; E87.79 Other fluid overload; I48.91 Unspecified atrial fibrillation; Z66 Do not resuscitate; Z85.89 Personal history of malignant neoplasm of other organs and systems; Z87.891 Personal history of nicotine dependence; Z20.822 Contact with and (suspected) exposure to COVID-19
CPT/HCPCS: J1160; J1650; J3370; Q3014; Q9967